=== PATIENT | female | born 1955 | race Hispanic/Latino ===

== ENCOUNTER 2020-04-05 23:24 | Emergency (ER) | payer OTHER ==
[~2020-04-05] VITALS: Ht 170.2 cm; Wt 152.0 kg
[2020-04-06 00:15] LABS: BASOPHILS % 0.5 % (0.0-1.0); EOSINOPHILS # (AUTO) 0.2 (0.0-0.4); EOSINOPHILS % 2.9 % (0.0-6.0); HEMATOCRIT 33.2 % (34.2-44.1); HEMOGLOBIN 10.3 g/dL (12.0-16.0); LYMPHOCYTES # (AUTO) 1.1 (1.0-3.2); LYMPHOCYTES % 17.8 % (18.0-39.1); MEAN CORPUSCULAR HEMOGLOBIN 26.3 pg (28-32); MEAN CORPUSCULAR VOLUME 84.9 fL (81-99); MONOCYTES # (AUTO) 0.5 (0.2-0.8); MONOCYTES % 7.6 % (4.4-11.3); NEUTROPHILS # (AUTO) 4.4 (2.1-6.9); NEUTROPHILS % 70.9 % (38.7-80.0); PLATELET COUNT 261 x10e3/uL (140-360); RED BLOOD COUNT 3.91 x10e6/uL (3.6-5.1); RED CELL DISTRIBUTION WIDTH 15.9 % (11.7-14.4)
--- OUTSIDE RECORDS SUMMARY | 2020-04-06 00:32 | XMS REPORT | Clinical Summary ---
Author Author [facility] Organization [facility] Address Unknown Phone Unavailable Care Team Providers Care Manager Drug Name Role Phone Margaret Barton MD PCP Allergies Comments Active Allergy Reactions Severity Noted Date Hallucinations reported per patient Clonidine Other (See 03/31/2020 Comments) Medications End Date Status Medication Sig Dispensed Refills Start Date Active carvediloL (COREG) 25 MG Take 25 mg by 0 tablet mouth 2 (two) times a day with meals. Active furosemide (LASIX) 40 mg Take 40 mg by 0 tablet mouth 2 (two) times a day. Active calcitrioL (ROCALTROL) Take 0.25 mcg 0 0.25 MCG capsule by mouth 3 (three) times a week. Saturday, Saturday, Saturday Active ergocalciferol (VITAMIN Take 50,000 0 D2) 50,000 unit capsule Units by mouth once a week. Saturday Active levothyroxine (SYNTHROID) Take 75 mcg 0 75 mcg tablet by mouth every morning. Active atorvastatin (LIPITOR) 40 Take 40 mg by 0 mg tablet mouth nightly. 05/01/2020 Active hydrALAZINE (APRESOLINE) Take 1 tablet 90 tablet 0 100 MG tablet (100 mg 0 total) by mouth every 8 (eight) hours for 30 days. 05/02/2020 Active NIFEdipine XL (PROCARDIA Take 1 tablet 30 tablet 0 XL) 60 MG 24 hr tablet (60 mg total) 0 by mouth daily for 30 days. 04/02/2020 Discontinued (Stop Taking at Discharge) LANTUS SOLOSTAR 100 Inject 38 0 unit/mL injection (pen) Units under 8 the skin nightly. 03/25/2020 Discontinued (Med List Clean up) lovastatin (MEVACOR) 10 Take 1 tablet 5 201 MG tablet by mouth 8 daily. 04/02/2020 Discontinued (Stop Taking at Discharge) irbesartan (AVAPRO) 300 Take 300 mg 0 MG tablet by mouth daily. 04/01/2020 Discontinued (Stop Taking at Discharge) clonIDINE (CATAPRES) 0.1 Take 1 tablet 60 tablet 0 MG tablet (0.1 mg 0 total) by mouth 2 (two) times a day for 30 days. 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 03/25/2020 [facility] Internal Tn dicine - Encounter 04/02/2020 Porter Ruiz PA 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 (HCC) (Primary Dx); S/P transmetatarsal amputation of foot, right (HCC); Right ankle swelling 01/21/2020 Orders Only Orthopedic Surgery Porter Ruiz PA 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 (HCC) (Primary Dx); Chronic multifocal osteomyelitis of left foot (HCC) 01/19/2020 Orders Only Orthopedic Surgery Porter Ruiz PA 12/28/2019 Orders Only Orthopedic Surgery Porter Ruiz PA 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 (HCC) (Primary Dx); S/P transmetatarsal amputation of foot, right (HCC) 11/26/2019 Orders Only Orthopedic Surgery Angel Santizo MD 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 (HCC) (Primary Dx) 07/27/2019 Office Visit Orthopedic Surgery after 04/06/2019 Family History Medical History Relation Name Comments Heart disease Father Shine Diabetes Sister Anna Relation Name Status Comments Father Shine Sister Anna Social History Date Tobacco Use Types Packs/Day Years Used Never Smoker Smokeless Tobacco: Never Used Drinks/Week oz/Week Comments Alcohol Use No Sex Assigned at Date Recorded Not on file Industry Job Start Date Occupation Not on file Not on file Not on file Travel End Travel History Travel Start No recent travel history available. Last Filed Vital Signs Reading Time Taken Comments Vital Sign 154/65 04/02/2020 11:52 AM CDT Blood Pressure 66 04/02/2020 11:52 AM CDT Pulse 36.5 C (97.7 F) 04/02/2020 11:52 AM CDT Temperature 21 04/02/2020 11:52 AM CDT Respiratory Rate 91% 04/02/2020 11:52 AM CDT Oxygen Saturation - - Inhaled Oxygen Concentration 155 kg (341 lb 11.2 oz) 03/29/2020 2:01 PM CDT Weight - - Height 53.52 10/31/2017 11:23 AM CDT Body Mass Index Plan of Treatment Health Maintenance Due Date Last Done Comments DIABETIC RETINAL EYE EXAM 1957 DIABETIC FOOT EXAM 1967 URINE MICROALBUMIN 1967 CERVICAL CANCER SCREENING 1978 BREAST CANCER SCREENING 2007 COLONOSCOPY SCREENING 2007 SHINGLES VACCINES (#1) 2007 INFLUENZA VACCINE 03/22/2020 Implants Device Identifier Shelf Expiration Date Model / Serial / L ot Implanted Type Area Manufactur er [id number] / / Drain Wnd Chnl 15fr 16in Rnd Hbls Surgical N/A: N/A BARD Fl-Flut W/ 10/04in Trocar - Implants; MEDICAL [id number] Expanders; DIVISION Implanted: Qty: 1 on 10/08/2017 by [employer]; Angel Santioz MD at [facility] Surgical HOSPITAL Wires [id number] / / Evacuator Bulb Jody 100cc Ltxf - Surgical N/A: N/A BARD [id number] Implants; MEDICAL Implanted: Qty: 1 on 10/08/2017 by [employer]; Angel Adler MD at [facility] Extenders; [facility] Surgical Wires Procedures Comments Procedure Name Priority Date/Time Associated Diag nosis POC GLUCOSE Routine 04/02/2020 11:52 AM CDT ESTIMATED GFR STAT 04/02/2020 8:47 AM CDT BASIC METABOLIC PANEL STAT 04/02/2020 8:47 AM CDT POC GLUCOSE Routine 04/02/2020 8:02 AM CDT POC GLUCOSE Routine 04/01/2020 9:17 PM CDT POC GLUCOSE Routine 04/01/2020 4:56 PM CDT POC GLUCOSE Routine 04/01/2020 12:27 PM CDT ESTIMATED GFR STAT 04/01/2020 11:25 AM CDT BASIC METABOLIC PANEL STAT 04/01/2020 11:25 AM CDT POC GLUCOSE Routine 04/01/2020 8:21 AM CDT POC GLUCOSE Routine 03/31/2020 8:34 PM CDT POC GLUCOSE Routine 03/31/2020 4:18 PM CDT POC GLUCOSE Routine 03/31/2020 11:26 AM CDT POC GLUCOSE Routine 03/31/2020 7:29 AM CDT ESTIMATED GFR Routine 03/31/2020 4:00 AM CDT BASIC METABOLIC PANEL Routine 03/31/2020 4:00 AM CDT MAGNESIUM LEVEL Routine 03/31/2020 4:00 AM CDT XR CHEST 1 VW PORTABLE STAT 03/31/2020 1:18 AM CDT POC GLUCOSE Routine 03/30/2020 9:31 PM CDT POC GLUCOSE Routine 03/30/2020 5:46 PM CDT POC GLUCOSE Routine 03/30/2020 12:32 PM CDT ESTIMATED GFR STAT 03/30/2020 10:42 AM CDT MAGNESIUM LEVEL STAT 03/30/2020 10:42 AM CDT BASIC METABOLIC PANEL STAT 03/30/2020 10:42 AM CDT POC GLUCOSE Routine 03/30/2020 9:17 AM CDT POC GLUCOSE Routine 03/30/2020 3:20 AM CDT POC GLUCOSE Routine 03/29/2020 4:47 PM CDT POC GLUCOSE Routine 03/29/2020 11:24 AM CDT CO2 LEVEL Routine 03/29/2020 10:09 AM CDT AST (SGOT) Routine 03/29/2020 10:09 AM CDT POTASSIUM LEVEL Routine 03/29/2020 10:09 AM CDT ALT (SGPT) Routine 03/29/2020 10:09 AM CDT TTE COMPLETE, W CONTRAST, Routine 03/29/2020 W DOPPLER ([id number]) 10:00 AM CDT POC GLUCOSE Routine 03/29/2020 7:50 AM CDT ESTIMATED GFR Routine 03/29/2020 5:45 AM CDT MAGNESIUM LEVEL Routine 03/29/2020 5:45 AM CDT COMPREHENSIVE METABOLIC Routine 03/29/2020 PANEL 5:45 AM CDT PHOSPHORUS LEVEL Routine 03/29/2020 5:45 AM CDT POC GLUCOSE Routine 03/28/2020 9:13 PM CDT POC GLUCOSE Routine 03/28/2020 5:16 PM CDT POC GLUCOSE Routine 03/28/2020 11:58 AM CDT POC GLUCOSE Routine 03/28/2020 8:22 AM CDT POC GLUCOSE Routine 03/27/2020 9:10 PM CDT PROTEIN, URINE, RANDOM Routine 03/27/2020 7:35 PM CDT CREATININE LEVEL, URINE, Routine 03/27/2020 RANDOM 7:35 PM CDT POC GLUCOSE Routine 03/27/2020 5:08 PM CDT B NATRIURETIC PEPTIDE Routine 03/27/2020 4:48 PM CDT POC GLUCOSE Routine 03/27/2020 1:07 PM CDT US RENAL Routine 03/27/2020 11:36 AM CDT POC GLUCOSE Routine 03/27/2020 7:50 AM CDT PHOSPHORUS LEVEL Routine 03/27/2020 5:06 AM CDT ESTIMATED GFR Routine 03/27/2020 5:06 AM CDT HC COMPLETE BLD COUNT Routine 03/27/2020 W/AUTO DIFF 5:06 AM CDT CREATINE KINASE, TOTAL Routine 03/27/2020 (CPK) 5:06 AM CDT HEMOGLOBIN A1C Routine 03/27/2020 5:06 AM CDT MAGNESIUM LEVEL Routine 03/27/2020 5:06 AM CDT BASIC METABOLIC PANEL Routine 03/27/2020 5:06 AM CDT CHLORIDE LEVEL, URINE, Routine 03/27/2020 RANDOM 12:55 AM CDT POTASSIUM, URINE, RANDOM Routine 03/27/2020 12:55 AM CDT CREATININE LEVEL, URINE, Routine 03/27/2020 RANDOM 12:55 AM CDT SODIUM LEVEL, URINE, Routine 03/27/2020 RANDOM 12:55 AM CDT URINALYSIS, AUTOMATED Routine 03/27/2020 WITH MICROSCOPY 12:55 AM CDT URINALYSIS, AUTOMATED STAT 03/27/2020 WITH MICROSCOPY 12:55 AM CDT POC GLUCOSE Routine 03/26/2020 9:32 PM CDT POC GLUCOSE Routine 03/26/2020 4:24 PM CDT POC GLUCOSE Routine 03/26/2020 11:33 AM CDT POC GLUCOSE Routine 03/26/2020 8:06 AM CDT ESTIMATED GFR Routine 03/26/2020 5:20 AM CDT VITAMIN B12 LEVEL Routine 03/26/2020 5:20 AM CDT FERRITIN LEVEL Routine 03/26/2020 5:20 AM CDT THYROID STIMULATING Routine 03/26/2020 HORMONE 5:20 AM CDT LIPID PANEL Routine 03/26/2020 5:20 AM CDT HEMOGLOBIN A1C Routine 03/26/2020 5:20 AM CDT MAGNESIUM LEVEL Routine 03/26/2020 5:20 AM CDT PHOSPHORUS LEVEL Routine 03/26/2020 5:20 AM CDT BASIC METABOLIC PANEL Routine 03/26/2020 5:20 AM CDT HC COMPLETE BLD COUNT Routine 03/26/2020 W/AUTO DIFF 5:20 AM CDT POC GLUCOSE Routine 03/25/2020 9:27 PM CDT POC GLUCOSE Routine 03/25/2020 6:15 PM CDT COVID-19 QUALITATIVE PCR STAT 03/25/2020 4:28 PM CDT ECG ED PRELIMINARY Routine 03/25/2020 INTERPRETATION 3:50 PM CDT IN CRITICAL CARE, E/M Routine 03/25/2020 30-74 MINUTES 3:50 PM CDT POC GLUCOSE Routine 03/25/2020 3:38 PM CDT XR CHEST 1 VW PORTABLE STAT 03/25/2020 3:08 PM CDT ESTIMATED GFR Routine 03/25/2020 3:05 PM CDT B NATRIURETIC PEPTIDE Routine 03/25/2020 3:05 PM CDT TROPONIN Routine 03/25/2020 3:05 PM CDT COMPREHENSIVE METABOLIC Routine 03/25/2020 PANEL 3:05 PM CDT PARTIAL THROMBOPLASTIN Routine 03/25/2020 TIME (PTT) 3:05 PM CDT PROTHROMBIN TIME WITH INR Routine 03/25/2020 3:05 PM CDT HC COMPLETE BLD COUNT Routine 03/25/2020 W/AUTO DIFF 3:05 PM CDT POC GLUCOSE Routine 03/25/2020 3:03 PM CDT ECG 12-LEAD STAT 03/25/2020 2:41 PM CDT POC GLUCOSE Routine 03/25/2020 2:34 PM CDT after 04/06/2019 Results * POC glucose (04/02/2020 11:52 AM CDT) Only the most recent of 35 results within the time period is included. POC glucose 143 (H) 65 - 99 mg/dL [place] Comment: [employer] Engineer Name: [facility] Device ID: [id number] Chartable: [facility] Notified RN Specimen Blood Performing Organization Address City/State/Zipcode Ph one Number [facility] DEPARTMENT OF [address] [place] [address] PATHOLOGY AND GENOMIC MEDICINE [place] [employer] [address] [place] [address] HOSPITAL * Estimated GFR (04/02/2020 8:47 AM CDT) Only the most recent of 8 results within the time period is included. [facility] Estimated GFR 12 (A) mL/min/1.73 m2 [place] Comment: [facility] Interpretation G1 >=90 Normal or high G2 60-89 Mildly decreased G3a 45-59 Mildly to moderately decreased G3b 30-44 Moderately to severely decreased G4 15-29 Severely decreased G5 <15 Kidney failure The eGFR was calculated using the Chronic Kidney Disease Epidemiology Collaboration (CKD-EPI) equation. Interpretation is based on recommendations of the National Kidney Foundation-Kidney Disease Outcomes Quality Initiative (NKF-KDOQI) published in 2014. Specimen Performing Organization Address City/[facility] Ph one Number [facility] [place] [address] PATHOLOGY AND GENOMIC MEDICINE [address] * Basic metabolic panel (04/02/2020 8:47 AM CDT) Only the most recent of 6 results within the time period is included. [facility] Sodium 139 135 - 148 mEq/L [facility] Potassium 3.9 3.5 - 5.0 mEq/L [facility] Chloride 105 98 - 112 mEq/L [facility] CO2 17 (L) 24 - 31 mEq/L [facility] Anion gap 17@ANIO (H) 7 - 15 mEq/L [facility] BUN 37 (H) 8 - 23 mg/dL [facility] Creatinine 3.71 (H) 0.50 - 0.90 mg/dL [facility] Glucose 138 (H) 65 - 99 mg/dL [facility] Calcium 8.3 (L) 8.8 - 10.2 mg/dL [facility] Specimen Blood Performing Organization Address City/[facility] Ph one Number [facility] DEPARTMENT OF [address] [place] [address] PATHOLOGY AND GENOMIC MEDICINE [address] * Magnesium level (03/31/2020 4:00 AM CDT) Only the most recent of 5 results within the time period is included. [facility] Magnesium 2.0 1.6 - 2.4 mg/dL [facility] Specimen Blood Performing Organization Address City/[facility] Ph one Number [facility] DEPARTMENT OF [address] [place] [address] PATHOLOGY AND GENOMIC MEDICINE [address] [address] HOSPITAL * XR Chest 1 Vw Portable (03/31/2020 1:18 AM CDT) Only the most recent of 2 results within the time period is included. Specimen Narrative Performed At EXAMINATION: XR CHEST 1 VW PORTABLE [facility] CLINICAL HISTORY: 64 years Female karol rt of breath COMPARISON: 03/25/2020 IMPRESSION: Lines/Tubes: None. Lungs/Pleura: Bilateral interstitial an d hazy airspace opacities, predominantly in the perihilar region likely represen t mild pulmonary edema. Superimposed infection cannot be excluded. Trace matthew ateral pleural effusions are suspected. No pneumothorax is seen. Heart/Mediastinum: The cardiomediastina l silhouette is enlarged, unchanged. Bones: No acute osseous abnormality. [id number] Procedure Note Hm Interface, Radiology Results Incoming - 03/31/2020 1:22 AM CDT EXAMINATION: XR CHEST 1 VW PORTABLE CLINICAL HISTORY: 64 years Female short of breath COMPARISON: 03/25/2020 IMPRESSION: Lines/Tubes: None. Lungs/Pleura: Bilateral interstitial and hazy airspace opacities, predominantly in the perihilar region likely represent mild pulmonary edema. Superimposed infection cannot be excluded. Trace bilateral pleural effusions are suspected. No pneumothorax is seen. Heart/Mediastinum: The cardiomediastinal silhouette is enlarged, unchanged. Bones: No acute osseous abnormality. [id number] Performing Organization Address City/State/Zipcode Ph one Number [facility] [address] [place] [id number] * ALT (SGPT) (03/29/2020 10:09 AM CDT) ALT 20 5 - 50 U/L [facility] Specimen Performing Organization Address City/State/Zipcode Ph one Number [facility] DEPARTMENT OF [address] [place] [id number] PATHOLOGY AND GENOMIC MEDICINE [address] * AST (SGOT) (03/29/2020 10:09 AM CDT) AST 19 10 - 35 U/L [facility] Specimen Performing Organization Address City/[facility]/Zipcode Ph one Number [facility] DEPARTMENT OF [address] [place] [id number] PATHOLOGY AND GENOMIC MEDICINE [address] * Potassium level (03/29/2020 10:09 AM CDT) Potassium 3.7 3.5 - 5.0 mEq/L [facility] Specimen Performing Organization Address [facility] Ph one Number [facility] DEPARTMENT OF [address] [place] [address] PATHOLOGY AND GENOMIC MEDICINE [address] * CO2 level (03/29/2020 10:09 AM CDT) CO2 16 (L) 24 - 31 mEq/L [facility] Specimen Performing Organization Address [facility] Ph one Number [facility] DEPARTMENT OF [address] [place] [address] PATHOLOGY AND GENOMIC MEDICINE [address] * Transthoracic Echocardiogram Complete, (w Contrast, Strain and 3D if needed) (03/29/2020 10:00 AM CDT) Specimen Narrative Performed At [facility] Echo cardiography Report [address] [place] [address] Pat.Name: AGATA MEDINA Pat.ID: [id number] .Date: 03/29/2020 Refer.MD: MEGHA DUONG MD Exam Time: 9:15:00 AM Study Type:Routine Echo Height: 67in Weight: 341lb BSA: 2.54 m2 Age: 9 1955,64Y Sex: FEMALE BP: 191/65 HR: 75 bpm Sonogrphr: Teresita Rapp RDCS Pat. Stat.:Inpatient Room: [facility] Study Status:Final Echo Event ID:[id number] Order ID: [id number] Reason for Study:Volume overload History / Clinical:Diabetes, Hypertensi on, Obesity Procedures: 2D Echo, Colorflow Doppler, Portable, Intravenous Definity Contrast Race: C SUMMARY: LV EF is normal. Estimated EF is 65-69% RV systolic function is normal. Diastolic dysfunction Grade II (Moderat e): Impaired relaxation with elevated LV filling pressures. Mild tricuspid regurgitation. Suboptima l/insufficient TR jet. Estimated PA systolic pressure is at le ast 59 mmHg, assuming a mean RAP of 15 mmHg. FINDINGS: LV: LV size is normal. There i s moderate concentric LV hypertrophy. LV EF is nor mal. Overall wall motion is normal. Estimated EF is 65-69% RV: RV size is normal. RV syst olic function is normal. LA: LA volume is enlarged. RA: RA size is normal. AO: Aortic root diameter is no rmal. MARK: No pericardial effusion. AV: No structural AV abnormali ties noted. MV: Mild mitral annular calcif ication. Thickened and/or calcified chordae. Mild m itral regurgitation. PV: No structural PV abnormali ties noted. A trace of pulmonic regurgitation. TV: No structural TV abnormali ties noted. Mild tricuspid regurgitation Doyle: Diastolic dysfunction Grade II (Moderate): Impaired relaxation with elevated LV filling pressures. Other: Suboptimal/insufficient TR jet. Estimated PA systolic pressure is at least 59 m mHg, assuming a mean RAP of 15 mmHg. MEASUREMENTS: 2D Parasternal [place] Ao An 2.2 cm LVPWd 1.4 cm Ao Rtd 3.1 cm Index 1.2 cm/m2 LA Ds 5.3 cm IVSd 1.2 cm RWT 0.53 LVIDd 5.3 cm Index 2.1 cm/m2 LV Mass 290 g (87-12 9)* LVIDs 3.5 cm LVM Index 114 g/m LV%fs 34 % LVOT 2.3 cm LA Sng Plane LA Area 25 cm (8.8-2 3.4)* LA Vol 86 ml Index 34 ml/m2 LA LngAx 6.1 cm LVOT LVOT Area 4.3 cm DOPPLER LVOT Stroke Vol & Cardiac Out LVOT TVI 29 cm HR 71 bpm LVOT LVOT SV 124 ml LVOT CO 8.8 l/min SVi 49 ml/m LVOT CI 3.5 l/m/m Signed 03/30/2020 11:12 AM Raine Avalos MD Procedure Note Interface, Radiology Results In - 03/30/2020 11:12 AM CDT Echocardiography Report [address] [place] [address] Pat.Name: AGATA MEDINA Pat.ID: [id number] .Date: 03/29/2020 Refer.MD: MEGHA DUONG MD Exam Time: 9:15:00 AM Study Type:Routine Echo Height: 67in Weight: 341lb BSA: 2.54 m2 Age: 9 1955,64Y Sex: FEMALE BP: 191/65 HR: 75 bpm Sonogrphr: Teresita Rapp RDCS Pat. Stat.:Inpatient Room: [facility] Study Status:Final Echo Event ID:[id number] Order ID: [id number] Reason for Study:Volume overload History / Clinical:Diabetes, Hypertension, Obesity Procedures: 2D Echo, Colorflow Doppler, Portable, Intravenous Definity Contrast Race: C SUMMARY: LV EF is normal. Estimated EF is 65-69% RV systolic function is normal. Diastolic dysfunction Grade II (Moderate): Impaired relaxation with elevated LV filling pressures. Mild tricuspid regurgitation. Suboptimal/insufficient TR jet. Estimated PA systolic pressure is at least 59 mmHg, assuming a mean RAP of 15 mmHg. FINDINGS: LV: LV size is normal. There is moderate concentric LV hypertrophy. LV EF is normal. Overall wall motion is normal. Estimated EF is 65-69% RV: RV size is normal. RV systolic function is normal. LA: LA volume is enlarged. RA: RA size is normal. AO: Aortic root diameter is normal. MARK: No pericardial effusion. AV: No structural AV abnormalities noted. MV: Mild mitral annular calcification. Thickened and/or calcified chordae. Mild mitral regurgitation. PV: No structural PV abnormalities noted. A trace of pulmonic regurgitation. TV: No structural TV abnormalities noted. Mild tricuspid regurgitation Doyle: Diastolic dysfunction Grade II (Moderate): Impaired relaxation with elevated LV filling pressures. Other: Suboptimal/insufficient TR jet. Estimated PA systolic pressure is at least 59 mmHg, assuming a mean RAP of 15 mmHg. MEASUREMENTS: 2D Parasternal [place] Ao An 2.2 cm LVPWd 1.4 cm Ao Rtd 3.1 cm Index 1.2 cm/m2 LA Ds 5.3 cm IVSd 1.2 cm RWT 0.53 LVIDd 5.3 cm Index 2.1 cm/m2 LV Mass 290 g (87-129)* LVIDs 3.5 cm LVM Index 114 g/m LV%fs 34 % LVOT 2.3 cm LA Sng Plane LA Area 25 cm (8.8-23.4)* LA Vol 86 ml Index 34 ml/m2 LA LngAx 6.1 cm LVOT LVOT Area 4.3 cm DOPPLER LVOT Stroke Vol & Cardiac Out LVOT TVI 29 cm HR 71 bpm LVOT LVOT SV 124 ml LVOT CO 8.8 l/min SVi 49 ml/m LVOT CI 3.5 l/m/m Signed 03/30/2020 11:12 AM Raine Avalos MD Performing Organization Address City[facility]State[facility] Ph one Number [facility] [address] [place] [address] * Phosphorus level (03/29/2020 5:45 AM CDT) Only the most recent of 3 results within the time period is included. Phosphorus 4.2 2.4 - 4.5 mg/dL [facility] Specimen Blood Performing Organization Address City/State/Zipcode Ph one Number [facility] DEPARTMENT OF [address] [place] [address] PATHOLOGY AND GEN[address]IC MEDICINE [facility] [address] [place] [address] HOSPITAL * Comprehensive metabolic panel (03/29/2020 5:45 AM CDT) Only the most recent of 2 results within the time period is included. Pathologist [facility] Sodium 139 135 - 148 mEq/L [facility] Potassium SEE COMMENT 3.5 - 5.0 mEq/L [place] Comment: [facility] Footnote--------- HOSPITAL Unable to perform testing, specimen is HEMOLYZED. Recollect requested for K, ALT, AST. Chloride 111 98 - 112 mEq/L [facility] CO2 10 (LL) 24 - 31 mEq/L [facility] Anion gap 18@ANIO (H) 7 - 15 mEq/L [facility] BUN 32 (H) 8 - 23 mg/dL [facility] Creatinine 2.81 (H) 0.50 - 0.90 mg/dL [facility] Glucose 111 (H) 65 - 99 mg/dL [facility] Calcium 8.4 (L) 8.8 - 10.2 mg/dL [facility] Protein 5.7 (L) 6.3 - 8.3 g/dL [place] Comment: [facility] 4.6-7.0 g/dL 1 week 4.4-7.6 g/dL 7 months-1year 5.1-7.3 g/dL 1-2 years 5.6-7.5 g/dL >3 years 6.0-8.0 g/dL 18-150 6.3-8.3 g/dL Albumin 1.7 (L) 3.5 - 5.0 g/dL [facility] A/G ratio 0.4 (L) 0.7 - 3.8 [facility] Alkaline 102 35 - 104 U/L [place] phosphatase [facility] AST SEE COMMENTComment: 10 - 35 U/L [place] Footnote--------- [facility] ALT SEE COMMENTComment: 5 - 50 U/L [place] Footnote--------- [facility] Total bilirubin 0.3 0.0 - 1.2 mg/dL [facility] Specimen Blood Narrative Performed At Unable to perform testing, specimen is HEMOLYZED. R ecollect requested for K, [facility] DEPARTMENT OF ALT, AST. ____ (name/location) notified by MRE at 0 03/29/2020 ____ PATHOLOGY AND (date/time). GENOMIC MEDICINE Performing Organization Address [facility] one Number [facility] DEPARTMENT OF [address] [place] [address] PATHOLOGY AND [facility] MEDICINE [address] * Protein, urine, random (03/27/2020 7:35 PM CDT) Protein, urine 869 mg/dL [facility] Specimen Urine Performing Organization Address [facility] one Number [facility] DEPARTMENT OF [address] [place] [address] PATHOLOGY AND GENOMIC MEDICINE [address] * Creatinine level, urine, random (03/27/2020 7:35 PM CDT) Only the most recent of 2 results within the time period is included. Creatinine, 72 mg/dL [place] urine, random [facility] Specimen Urine Performing Organization Address [facility] one Number [facility] DEPARTMENT OF [address] [place] [address] PATHOLOGY AND GENOMIC MEDICINE [address] * B natriuretic peptide (03/27/2020 4:48 PM CDT) Only the most recent of 2 results within the time period is included. BNP 203 (H) 0 - 100 pg/mL [facility] HOSPITAL Specimen Blood Performing Organization Address [facility] one Number [facility] DEPARTMENT OF [address] [place] [address] PATHOLOGY AND GENOMIC MEDICINE [address] * US Renal (03/27/2020 11:36 AM CDT) Specimen Narrative Performed At EXAMINATION: US RENAL [facility] CLINICAL HISTORY: Headache position al, ACUTE KID FAILURE COMPARISON: None. TECHNIQUE: Ultrasound evaluation of t he kidneys and bladder. FINDINGS: The right kidney measures 11.1 x 5.5 x 6.5 cm. The left kidney measures 10.6 x 5.8 x 6 cm. Renal cortical echogenicity is increased. No focal abnormality, calculi, or hydro nephrosis. The bladder is not visualized and may b e collapsed. IMPRESSION: 1.Increased renal cortical echogenicity suggests changes related chronic medical renal disease. 2.Nonvisualized urinary bladder. 3.Otherwise, unremarkable renal ultraso und. [facility]-[id number] Procedure Note Hm Interface, Radiology Results - 03/27/2020 11:59 AM CDT EXAMINATION: US RENAL CLINICAL HISTORY: Headache positional, ACUTE KID FAILURE COMPARISON: None. TECHNIQUE: Ultrasound evaluation of the kidneys and bladder. FINDINGS: The right kidney measures 11.1 x 5.5 x 6.5 cm. The left kidney measures 10.6 x 5.8 x 6 cm. Renal cortical echogenicity is increased. No focal abnormality, calculi, or hydronephrosis. The bladder is not visualized and may be collapsed. IMPRESSION: 1.Increased renal cortical echogenicity suggests changes related chronic medical renal disease. 2.Nonvisualized urinary bladder. 3.Otherwise, unremarkable renal ultrasou nd. [facility]-[id number] Performing Organization Address City/State/Zipcode Ph one Number [facility] [address] [place] [address] * CBC with platelet and differential (03/27/2020 5:06 AM CDT) Only the most recent of 3 results within the time period is included. WBC 5.87 4.50 - 11.00 k/uL [facility] RBC 4.20 4.20 - 5.50 m/uL [facility] HGB 11.2 (L) 12.0 - 16.0 g/dL [facility] HCT 36.1 (L) 37.0 - 47.0 % [facility] MCV 86.0 82.0 - 100.0 fL [facility] MCH 26.7 (L) 27.0 - 34.0 pg [facility] MCHC 31.0 31.0 - 37.0 g/dL [facility] RDW - SD 49.8 37.0 - 55.0 fL [facility] MPV 11.5 8.8 - 13.2 fL [facility] Platelet count 283 150 - 400 k/uL [facility] Nucleated RBC 0.00 /100 WBC [facility] Neutrophils 57.3 39.0 - 69.0 % [facility] Lymphocytes 33.0 25.0 - 45.0 % [facility] Monocytes 6.8 0.0 - 10.0 % [facility] Eosinophils 2.2 0.0 - 5.0 % [facility] Basophils 0.5 0.0 - 1.0 % [facility] Immature 0.2Comment: "Immature 0.0 - 1.0 % [place] granulocytes granulocytes" (promyelocytes, [facility] myelocytes, metamyelocytes) [facility] Specimen Blood Performing Organization Address [facility] one Number [facility] DEPARTMENT OF [address] [place] [address] PATHOLOGY AND GENOMIC MEDICINE [address] * Hemoglobin A1c (03/27/2020 5:06 AM CDT) Only the most recent of 2 results within the time period is included. Hemoglobin A1C 5.7 (H) 4.0 - 5.6 % [place] Comment: [facility] HbA1c cutoffs for diagnosing HOSPITAL diabetes: 4.0% - 5.6% = normal 5.7% - 6.4% = increased risk for diabetes (prediabetes)9 >=6.5% = diabetes9 Goals for glycemic control (ADA 2016) < 7.0% Target for non adults with diabetes. More or less stringent targets may be appropriate for individual patients. <7.5% Target for Children and adolescents with type 1 diabetes. Specimen Blood Performing Organization Address City/[facility] one Number [facility] DEPARTMENT OF [address] [place] [address] PATHOLOGY AND GENOMIC MEDICINE [address] * Creatine kinase, total (CPK) (03/27/2020 5:06 AM CDT) Creatine kinase 553 (H) 26 - 192 U/L [facility] Specimen Blood Performing Organization Address City/[facility]/Zipcode Ph one Number [facility] DEPARTMENT OF [address] [place] [address] PATHOLOGY AND GENOMIC MEDICINE [address] * Sodium level, urine, random (03/27/2020 12:55 AM CDT) Sodium, urine, 34 mEq/L [facility] Specimen Urine Performing Organization Address City/[facility] Ph one Number [facility] DEPARTMENT OF [address] [place] [address] PATHOLOGY AND GENOMIC MEDICINE [address] * Potassium, urine, random (03/27/2020 12:55 AM CDT) Potassium, 30.3 mEq/L [place] urine, [facility] Specimen Urine Performing Organization Address City/[facility] Ph one Number [facility] DEPARTMENT OF [address] [place] [address] PATHOLOGY AND GENOMIC MEDICINE [address] * Chloride level, urine, random (03/27/2020 12:55 AM CDT) Chloride, 32 mEq/L [place] urine, [facility] Specimen Urine Performing Organization Address City/[facility] Ph one Number [facility] DEPARTMENT OF [address] [place] [address] PATHOLOGY AND GENOMIC MEDICINE [address] * Urinalysis, automated with microscopy (03/27/2020 12:55 AM CDT) Only the most recent of 2 results within the time period is included. Color, UA Yellow [facility] Appearance, UA Hazy [facility] Specific 1.015 1.001 - 1.035 [place] gravity, [facility] pH, UA 5.0 5.0 - 8.5 [facility] Protein, UA 3+ (A) Negative [facility] Glucose, UA 3+ (A) Negative [facility] Ketones, UA Negative Negative [facility] Bilirubin, UA Negative Negative [facility] Blood, UA Moderate (A) Negative [facility] Nitrite, UA Negative Negative [facility] Urobilinogen, <2.0 <2.0 [facility] Leukocyte Trace (A) Negative [place] esterase, [facility] Epithelial 2 /HPF [place] cells, [facility] WBC, UA 28 (H) 0 - 4 /HPF [facility] RBC, UA 1 0 - 5 /HPF [facility] Bacteria, UA Moderate (A) None seen [facility] Hyaline casts, 4 /LPF [facility] WBC clumps, UA Few (A) [facility] Yeast, UA Few (A) [facility] Yeast with None seen [place] [facility] Specimen Urine Performing Organization Address City/[facility] Ph one Number [facility] DEPARTMENT OF [address] [place] [address] PATHOLOGY AND GENOMIC MEDICINE [address] * Thyroid stimulating hormone (03/26/2020 5:20 AM CDT) TSH 3.32 0.27 - 4.20 uIU/mL [facility] Specimen Blood Performing Organization Address City/[facility] Ph one Number [facility] DEPARTMENT OF [address] [place] [address] PATHOLOGY AND GENOMIC MEDICINE [address] * Ferritin level (03/26/2020 5:20 AM CDT) Ferritin level 69 13 - 150 ng/mL [facility] Specimen Blood Performing Organization Address City/[facility] Ph one Number [facility] DEPARTMENT OF [address] [place] [address] PATHOLOGY AND GENOMIC MEDICINE [address] * Vitamin B12 level (03/26/2020 5:20 AM CDT) Vitamin B12 560 211 - 946 pg/mL [place] Comment: [facility] Significant overlap exists HOSPITAL between normal and deficiency states. However, most patients with deficiencies will have Serum B12 <200 pg/mL. Specimen Serum Performing Organization Address City/[facility] Ph one Number [facility] DEPARTMENT OF [address] [place] [address] PATHOLOGY AND GENOMIC MEDICINE [address] * Lipid panel (03/26/2020 5:20 AM CDT) Cholesterol 142 <200 mg/dL [facility] Triglycerides 129 <150 mg/dL [facility] HDL cholesterol 39 (L) >40 mg/dL [facility] LDL cholesterol 83Comment: Result obtained by <100 mg/dL [place] direct LDL measurement [facility] interpretation Comment: [facility] Total Cholesterol (mg/dL) [facility] <200 Desirable 200-239 Borderline-high >=240 High Triglycerides (mg/dL) <150 Normal 150-199 Borderline-high 200-499 High >=500 Very high HDL Cholesterol (mg/dL) <40 Low (male) <40 Low (female) LDL Cholesterol (mg/dL) <100 Optimal 100-129 Near or above optimal 130-159 Borderline-high 160-189 High >=190 Very high Risk Catergories that modify LDL goals. Risk Catergories LDL goal (mg/dL) CHD and CHD risk equivalent <100 (10-year risk >20%) Multiple (2+) risk factors <130 (10-year risk =<20%) 0-1 risk factors <160 (<10-year risk) Defining levels of lipids in metabolic syndrome Triglycerides >=150 mg/dL HDL Cholesterol Men <40 mg/dL Women <40 mg/dL Non-HDL cholesterol is a second target for therapy in persons with high triglycerides (>=200 mg/dL) Specimen Blood Performing Organization Address City/[facility] Ph one Number [facility] DEPARTMENT OF [address] [place] [address] PATHOLOGY AND GENOMIC MEDICINE [address] * COVID-19 qualitative PCR (03/25/2020 4:28 PM CDT) Interpretation Negative results do not TODD preclude 2019-nCoV infection [facility] and should not be used as the HOSPITAL sole basis for treatment or other patient management decisions. Negative results must be combined with clinical observations, patient history, and epidemiological information. COVID-19 Not-Detected Not-Detected [place] qualitative PCR [facility] result HOSPITAL COVID-19 See link below for PDF Lab [place] qualitative PCR ReportComment: Case Number: [facility] [id number] HOSPITAL Specimen Nasopharyngeal swab Performing Organization Address City/State/[facility] Ph one Number [facility] DEPARTMENT OF [address] [place] [address] PATHOLOGY AND GENOMIC MEDICINE [address] * ECG ED Preliminary Interpretation - Not an Order (03/25/2020 3:50 PM CDT) Narrative Performed At Bc Melendez MD 03/28/2020 9 :43 AM ECG ED Preliminary Interpretation - Not an Order Performed by: Bc Melendez MD Authorized by: Bc Melendez MD ECG reviewed by ED 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 Interpretation: Interpretation: normal Rate: ECG rate: 56 ECG rate assessment: bradycardic Rhythm: Rhythm: sinus bradycardia Ectopy: Ectopy: none QRS: QRS axis: Normal QRS intervals: Normal Conduction: Conduction: normal ST segments: ST segments: Normal T waves: T waves: normal * CRITICAL CARE (03/25/2020 3:50 PM CDT) Narrative Performed At Bc Melendez MD 03/28/2020 9 :43 AM Critical Care Performed by: Bc Melendez MD Authorized by: Bc Melendez MD Critical care provider statement: Critical care time (minutes): 35 Critical care was necessary to treat or prevent imminent or life-threatening deterioration of the f ollowing conditions: Metabolic crisis and endocrine crisis Critical care was time spent personal ly by me on the following activities: Blood draw for specimens, development of treatment plan with patient or surrogate, discussions with consultants, discussions with primary provider, evaluation of patient 's response to treatment, examination of patient, review of old c harts, re-evaluation of patient's condition, pulse oximetry, ordering and review of radiographic studies, ordering and review of laboratory studi es and ordering and performing treatments and interventions Darío 'yes' if you are taking over cri tical care for this patient from another provider.: no * Troponin (03/25/2020 3:05 PM CDT) Troponin <0.006 0.000 - 0.040 ng/mL [place] Comment: [facility] In patients suspected of HOSPITAL having a myocardial infarction, along with all other appropriate clinical measures and actions including ECG and other diagnostics as appropriate, measure Ultra TnI at 0 hrs and at 3 hrs. Myocardial infarction VERY LIKELY The 0 hr TnI level is > 0.10 ng/mL Myocardial infarction LIKELY The 0 hr TnI level is > 0.04 ng/mL and 3 hr level is increased or decreased by at least 0.020 ng/mL Myocardial infarction VERY UNLIKELY Both the 0 hr and 3 hr TnI levels <= 0.04 ng/mL(within normal limits) OR 0 hr is > 0.04 ng/mL and 3 hr is increased OR decreased by less than 0.020 ng/mL Specimen Blood Performing Organization Address [facility] one Number [facility] DEPARTMENT OF [address] [place] [address] PATHOLOGY AND [facility] MEDICINE [address] * Partial thromboplastin time, activated (03/25/2020 3:05 PM CDT) [facility] PTT 31.8 23.0 - 36.0 sec [place] Comment: [facility] PTT therapeutic range for HOSPITAL unfractionated heparin is 61.0-112.0 seconds which corresponds to Anti-Xa 0.3-0.7 U/ml. Specimen Blood Performing Organization Address [facility] one Number [facility] DEPARTMENT OF [address] [place] [address] PATHOLOGY AND [facility] MEDICINE [address] * Prothrombin time with INR (03/25/2020 3:05 PM CDT) [facility] Prothrombin 14.8 (H) 11.5 - 14.5 sec [facility] INR 1.2 [place] Comment: [facility] Normalized HOSPITAL Ratio (INR) is a therapeutic monitoring tool for patients who are stable on oral anticoagulant therapy. An INR of 2.0-3.0 is suggested for deep vein thrombosis/pulmonary embolism. Specimen Blood Performing Organization Address [facility] one Number [facility] DEPARTMENT OF [address] [place] [address] PATHOLOGY AND [facility] MEDICINE [place] [facility] [address] [place] [address] [place] [address] HOSPITAL * ECG 12 lead (03/25/2020 2:41 PM CDT) Ventricular 56 [facility] rate Atrial rate 56 [facility] IN interval 180 [facility] QRSD interval 92 [facility] QT interval 510 [facility] QTC interval 492 [facility] P axis 1 50 [facility] QRS axis 1 25 [facility] T wave axis 21 [facility] EKG impression Sinus bradycardia-Prolonged [facility] QT-Abnormal ECG-In automated comparison with ECG of 12-AUG-2017 05:17,-No significant change was found- Specimen Narrative Performed At This result has an attachment that is n ot available. 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
--- OUTSIDE RECORDS SUMMARY | 2020-04-06 00:32 | XMS REPORT | Continuity of Care Document ---
Author Author [facility] t Organization [facility] Address [address] [place] [address] Phone Unavailable Care Team Providers Care Mail Agent Name Role Phone Mick BAHENA, Margaret PCP Corky HICKEY, Marina Attphys Unavailable Nora BAHENA, Bc Attphys Faraz BAHENA, Jazmin Doyle Attphys Porter Allen Attphys Sukhdev BAHENA, Cassie Ortiz Attphys MEGHA DUONG Admphymignon Unavailable Payers Payer Name Policy Type Policy Number Effective Date Expiration Date S rohini AETANITRAAETANITRA HMO,POS,EPO, MC/[id number] xxxxxxxxxx 1996 00:00:00 Bob Escobar Problems Condition Name Condition Details Condition Category Status Onset Date Resolution Date Last Treatment Date Treating Clinician Comments Source 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 Disease Active 2017-10-24 00:00:00 Bob Escobar Osteomyelitis of left foot Osteomyelitis of left foot Disease Active 2017-10-07 00:00:[address] Sepsis Sepsis Disease Active 2017-10-05 00:00:00 Bob Escobar Joint effusion, foot, left Joint effusion, foot, left Disease Active 2017-08-12 00:00:[address] Hypoglycemia Hypoglycemia Disease Resolved 2020-03-25 00:00:00 2 00:00:00 2020-03-27 17:09:56 Bob george Allergies, Adverse Reactions, Alerts Allergy Name Allergy Type Status Severity Reaction(s) Onset Date Inacti ve Date Treating Clinician Comments Source Clonidine Propensity to adverse reactions to drug Active Other (See Comments) 2020-03-31 00:00:00 Hallucinations reported per patient Bob Escobar No Known Allergies DA Active U 2013-09-07 00:00:00 [facility] Family History Family Member Diagnosis Comments Start Date Stop Date Source Natural father Heart disease Bob Escobar Natural sister Diabetes Rojas La thodist Social History Social Habit Start Date Stop Date Quantity Comments Source Sex Assigned At Francisco Javier palacio Tenriism Alcohol intake 2020-03-25 00:00:00 2020-03-25 00:00:00 Current non-drinker of alcohol (finding) Bob Escobar Smoking Status Start Date Stop Date Source Never smoker Bob andrade Medications Ordered Medication Name Filled Medication Name Start Date Stop Da te Current Medication? Ordering Clinician Indication Dosage Frequency Signature (SIG) Comments Components Source irbesartan (AVAPRO) 300 MG tablet 2020-04-02 17:44:44 2019 00:00:00 No 300mg QD Take 300 mg by mouth daily. Bob Escobar carvediloL (COREG) 25 MG tablet 2020-04-02 17:44:41 Yes 25mg Q.5D Take 25 mg by mouth 2 (two) times a day with meals. Bob Escobar furosemide (LASIX) 40 mg tablet 2020-04-02 17:44:41 Yes 40mg Q.5D Take 40 mg by mouth 2 (two) times a day. Carol Escobar calcitrioL (ROCALTROL) 0.25 MCG capsule 2020-04-02 17:44:41 Yes .25ug Q.[id number] Take 0.25 mcg by mouth 3 (three) times a week. Saturday, Saturday, Saturday Bob Escobar ergocalciferol (VITAMIN D2) 50,000 unit capsule 2020-04-02 17:44 :41 Yes 31486O Q7D Take 50,000 Units by mouth once a week. Saturday Bob Escobar levothyroxine (SYNTHROID) 75 mcg tablet 2020-04-02 17:44:41 Yes 75ug QD Take 75 mcg by mouth every morning. Carol Escobar atorvastatin (LIPITOR) 40 mg tablet 2020-04-02 17:44:41 Yes 40mg QD Take 40 mg by mouth nightly. Bob andrade NIFEdipine XL (PROCARDIA XL) 60 MG 24 hr tablet 2020-04-02 00:00:00 2020-05-02 23:59:00 Yes 60mg QD Take 1 tablet (60 mg total) by mouth daily for 30 days. Bob Escobar hydrALAZINE (APRESOLINE) 100 MG tablet 2020-03-22 00:00:00 2020-05-01 23:59:00 Yes 100mg Q.[id number] Ta ke 1 tablet (100 mg total) by mouth every 8 (eight) hours for 30 days. Bob matos clonIDINE (CATAPRES) 0.1 MG tablet 2020-03-27 00:00:00 00:00:00 No .1mg Q.5D Take 1 tablet (0 .1 mg total) by mouth 2 (two) times a day for 30 days. Bob Escobar LANTUS SOLOSTAR 100 unit/mL injection (pen) 2017 00:00:00 2020-04-02 00:00:00 No 38U QD Inject 38 Units under the skin nightly. Bob Escobar lovastatin (MEVACOR) 10 MG tablet 2017-07-24 00:00:00 2019 00:00:00 No 1{tbl} QD Take 1 tablet by mouth daily. Bob Escobar Vital Signs Vital Name Observation Time Observation Value Comments Source Systolic blood pressure 2020-04-02 11:52:05 154 mm[Hg] Bob Escobar Diastolic blood pressure 2020-04-02 11:52:05 65 mm[Hg] Bob Escobar Heart rate 2020-04-02 11:52:05 66 /min Bob Escobar Body temperature 2020-04-02 11:52:05 36.5 Virgen Carol Escobar Respiratory rate 2020-04-02 11:52:05 21 /min Carol Escobar Oxygen saturation in Arterial blood by Pulse oximetry 04-02 11:52:05 91 /min Bob Escobar Body weight 2020-03-29 14:01:00 154.994 kg Bob Escobar BMI 2020-03-29 14:01:00 53.52 kg/m2 Bob Escobar Procedures Procedure Date / Time Performed Performing Clinician Sourc e POC GLUCOSE 2020-04-02 11:52:00 Megha Duong Meth odist BASIC METABOLIC PANEL 2020-04-02 08:47:00 Devante Beasley ESTIMATED GFR 2020-04-02 08:47:00 Devante Beasley POC GLUCOSE 2020-04-02 08:02:00 Megha Duong Meth odist POC GLUCOSE 2020-04-01 21:17:00 Megha Duong Meth odist POC GLUCOSE 2020-04-01 16:56:00 Megha Duong Meth odist POC GLUCOSE 2020-04-01 12:27:00 Megha Duong Meth odist BASIC METABOLIC PANEL 2020-04-01 11:25:00 Megha Duong ESTIMATED GFR 2020-04-01 11:25:00 Megha Duong Meth odist POC GLUCOSE 2020-04-01 08:21:00 Megha Duong Meth odist POC GLUCOSE 2020-03-31 20:34:00 Megha Duong Meth odist POC GLUCOSE 2020-03-31 16:18:00 Megha Duong Meth odist POC GLUCOSE 2020-03-31 11:26:00 Megha Duong Meth odist POC GLUCOSE 2020-03-31 07:29:00 Megha Duong odist MAGNESIUM LEVEL 2020-03-31 04:00:00 Devante Beasley BASIC METABOLIC PANEL 2020-03-31 04:00:00 Devante Beasley ESTIMATED GFR 2020-03-31 04:00:00 Devante Beasley XR CHEST 1 VW PORTABLE 2020-03-31 01:18:36 Megha Duong Tenriism POC GLUCOSE 2020-03-30 21:31:00 Megha Duong Meth odist POC GLUCOSE 2020-03-30 17:46:00 Megha Duong Meth odist POC GLUCOSE 2020-03-30 12:32:00 Megha Duong BASIC METABOLIC PANEL 2020-03-30 10:42:00 Devante Beasley MAGNESIUM LEVEL 2020-03-30 10:42:00 Devante Beasley ESTIMATED GFR 2020-03-30 10:42:00 Devante Beasley POC GLUCOSE 2020-03-30 09:17:00 Senegalese, Megha Rojas Meth odist POC GLUCOSE 2020-03-30 03:20:00 Senegalese, Megha Rojas Meth odist POC GLUCOSE 2020-03-29 16:47:00 Senegalese, Megha Rojas Meth odist POC GLUCOSE 2020-03-29 11:24:00 Senegalese, Megha Anglin odist ALT (SGPT) 2020-03-29 10:09:00 Senegalese, Megha Anglin odist POTASSIUM LEVEL 2020-03-29 10:09:00 SenegaleseMegha odlibby AST (SGOT) 2020-03-29 10:09:00 SenegaleseMegha odist CO2 LEVEL 2020-03-29 10:09:00 Senegalese, Megha Anglin odlibby TTE COMPLETE, W CONTRAST, W DOPPLER ([id number]) 2020-03-29 10:00:00 Megha Duong POC GLUCOSE 2020-03-29 07:50:00 Megha Duong odlibby PHOSPHORUS LEVEL 2020-03-29 05:45:00 Devante Beasley COMPREHENSIVE METABOLIC PANEL 2020-03-29 05:45:00 Power Beasley MAGNESIUM LEVEL 2020-03-29 05:45:00 Devante Beasley ESTIMATED GFR 2020-03-29 05:45:00 Devante Beasley POC GLUCOSE 2020-03-28 21:13:00 Megha Duong Meth odist POC GLUCOSE 2020-03-28 17:16:00 Megha Duong Meth odist POC GLUCOSE 2020-03-28 11:58:00 Megha Duong Meth odist POC GLUCOSE 2020-03-28 08:22:00 Megha Duong Meth odist POC GLUCOSE 2020-03-27 21:10:00 Megha Duong odlibby CREATININE LEVEL, URINE, RANDOM 2020-03-27 19:35:00 Talia Cabezas PROTEIN, URINE, RANDOM 2020-03-27 19:35:00 Sofie Cabezas Tenriism POC GLUCOSE 2020-03-27 17:08:00 Megha Duong B NATRIURETIC PEPTIDE 2020-03-27 16:48:00 Sofie Cabezas Tenriism POC GLUCOSE 2020-03-27 13:07:00 Megha Duong US RENAL 2020-03-27 11:36:15 Megha Duong odlibby POC GLUCOSE 2020-03-27 07:50:00 Megha Duong BASIC METABOLIC PANEL 2020-03-27 05:06:00 Megha Duong MAGNESIUM LEVEL 2020-03-27 05:06:00 Megha Duong HEMOGLOBIN A1C 2020-03-27 05:06:00 Megha Duong CREATINE KINASE, TOTAL (CPK) 2020-03-27 05:06:00 Megha Duong HC COMPLETE BLD COUNT W/AUTO DIFF 2020-03-27 05:06:00 Luis Cabezas ESTIMATED GFR 2020-03-27 05:06:00 Megha Duong PHOSPHORUS LEVEL 2020-03-27 05:06:00 Megha Duong hodlibby URINALYSIS, AUTOMATED WITH MICROSCOPY 2020-03-27 00:55:00 Sofie Cabezas SODIUM LEVEL, URINE, RANDOM 2020-03-27 00:55:00 Sofie Cabezas CREATININE LEVEL, URINE, RANDOM 2020-03-27 00:55:00 Talia Cabezas POTASSIUM, URINE, RANDOM 2020-03-27 00:55:00 Sofie Cabezas CHLORIDE LEVEL, URINE, RANDOM 2020-03-27 00:55:00 Mynor Cabezas POC GLUCOSE 2020-03-26 21:32:00 Megha Duong odist POC GLUCOSE 2020-03-26 16:24:00 Megha Duong odist POC GLUCOSE 2020-03-26 11:33:00 Senegalese, Megha AndradeNisha Rojas Meth odist POC GLUCOSE 2020-03-26 08:06:00 Senegalese, Megha Jazmin Anglin odlibby HC COMPLETE BLD COUNT W/AUTO DIFF 2020-03-26 05:20:00 Faraz Megha Escobar BASIC METABOLIC PANEL 2020-03-26 05:20:00 Senegalese, Megha Zimmer n Tenriism PHOSPHORUS LEVEL 2020-03-26 05:20:00 Senegalese, Megha Jazmin Rojas Met hodist MAGNESIUM LEVEL 2020-03-26 05:20:00 Senegalese, Megha Jazmin Anglin odist HEMOGLOBIN A1C 2020-03-26 05:20:00 Senegalese, Megha Anglin odist LIPID PANEL 2020-03-26 05:20:00 Senegalese, Megha Anglin odlibby THYROID STIMULATING HORMONE 2020-03-26 05:20:00 Senegalese, Megha Mesaist FERRITIN LEVEL 2020-03-26 05:20:00 Senegalese, Megha Anglin odist VITAMIN B12 LEVEL 2020-03-26 05:20:00 Senegalese, Megha Rojas Me thodist ESTIMATED GFR 2020-03-26 05:20:00 Senegalese, Megha Anglin odist POC GLUCOSE 2020-03-25 21:27:00 [place]egalese, Megha Jazmin Rojas Meth odist POC GLUCOSE 2020-03-25 18:15:00 Senegalese, Megha Jazmin george COVID-19 QUALITATIVE PCR 2020-03-25 16:28:00 Bc Melendez MO CRITICAL CARE, E/M 30-74 MINUTES 2020-03-25 15:50:06 Bc Melendez ECG ED PRELIMINARY INTERPRETATION 2020-03-25 15:50:06 Mignon Melendez POC GLUCOSE 2020-03-25 15:38:00 Bc Melendez XR CHEST 1 VW PORTABLE 2020-03-25 15:08:00 Bc Melendez HC COMPLETE BLD COUNT W/AUTO DIFF 2020-03-25 15:05:00 Mignon Melendez PROTHROMBIN TIME WITH INR 2020-03-25 15:05:00 Bc Melendez PARTIAL THROMBOPLASTIN TIME (PTT) 2020-03-25 15:05:00 Mignon Melendez COMPREHENSIVE METABOLIC PANEL 2020-03-25 15:05:00 NoraYu en Bob Escobar TROPONIN 2020-03-25 15:05:00 Bc Melendez Met hodist B NATRIURETIC PEPTIDE 2020-03-25 15:05:00 Bc Melendezraymond on Tenriism ESTIMATED GFR 2020-03-25 15:05:00 Nora Bc Rojas Met hodist POC GLUCOSE 2020-03-25 15:03:00 Bc Melendez Met hodist ECG 12-LEAD 2020-03-25 14:41:42 Bc Melendez Met hodist POC GLUCOSE 2020-03-25 14:34:00 Provider, Unknown [facility] Plan of Care Planned Activity Planned Date Details Comments Source Future Scheduled Test 2020-03-22 00:00:00 INFLUENZA VACCINE [code = INFLUENZA VACCINE] Rojas Tenriism Future Scheduled Test 2007 00:00:00 BREAST CANCER SCRE ENING [code = BREAST CANCER SCREENING] Rojas Tenriism Future Scheduled Test 2007 00:00:00 COLONOSCOPY SCREEN ING [code = COLONOSCOPY SCREENING] [facility] Future Scheduled Test 2007 00:00:00 SHINGLES VACCINES (#1) [code = SHINGLES VACCINES (#1)] [facility] Future Scheduled Test 1978 00:00:00 Screening for dl gnant neoplasm of cervix (procedure) [code = 890375674] Rojas Celia Future Scheduled Test 1967 00:00:00 DIABETIC FOOT EXAM [code = DIABETIC FOOT EXAM] Rojas Tenriism Future Scheduled Test 1967 00:00:00 URINE MICROALBUMIN [code = URINE MICROALBUMIN] [facility] Future Scheduled Test 1957 00:00:00 DIABETIC RETINAL E YE EXAM [code = DIABETIC RETINAL EYE EXAM] Bob Escobar Encounters Start Date/Time End Date/Time Encounter Type Admission Type Att[facility] Facility Care Department Encounter ID Source 2020-03-25 00:00:00 2020-04-02 00:00:00 Inpatient MEGHA DUONG [facility] [id number] Bob Escobar Results Test Description Test Time Test Comments Results Result Comments Source POC glucose 2020-04-02 11:54:57 Test Item POC glucose (test code = 10699-4) 143 mg/dL 65-99 H Roll Slicing Machine Tender Name: Deandre العليalysDevice ID: [id number]: [facility] Notified news clipping cutter Interpretation (test code = 67546-9) Abnormal [facility] [id number] 11:37:12* Test Item Value Reference Range Interpretation Comments Sodium (test code = 2951-2) 139 135- 148 mEq/L Potassium (test code = 2823-3) 3.9 3.5- 5.0 mEq/L Chloride (test code = 2075-0) 105 98- 112 mEq/L CO2 (test code = 2027-9) 17 24- 31 mEq/L L Anion gap (test code = 81191-5) 17@ANIO 7- 15 mEq/L H BUN (test code = 3094-0) 37 mg/dL 8-23 H Creatinine (test code = 2160-0) 3.71 mg/dL 0.5-0.9 H Glucose (test code = 2345-7) 138 mg/dL 65-99 H Calcium (test code = 32536-5) 8.3 mg/dL 8.8-10.2 L Lab Interpretation (test code = 40865-8) Abnormal [place] MethodistEstimated [id number] 11:37:12* Test Item Value Reference Range Interpretation Comments Estimated GFR (test code = 5488) 12 mL/min/1.73 m2 A Catergory Units InterpretationG1 >=90 Normal or highG2 60-89 Mildly ydgwqazbhL6v 45-59 Mildly to moderately mvsdvcvleW9e 30-44 Moderately to severely decreasedG4 15-29 Severely decreasedG5 <15 Kidney failureThe eGFR was calculated using the Chronic Kidney Disease Epidemiology Collaboration (CKD-EPI) equation. Interpretation is based on recommendations of the National Kidney Foundation-Kidney Disease Outcomes Quality Initiative (NKF-KDOQI) published in 2014. Lab Interpretation (test code = 72939-9) Abnormal [place] MethodistMagnesium [id number] 06:48:48* Test Item Value Reference Range Interpretation Comments Magnesium (test code = 04404-8) 2.0 mg/dL 1.6-2.4 [place] MethodistXR Chest 1 Vw [id number] 01:19:37Hm Interface, Radiology Results 03/31/2020 1:22 AM CDTEXAMINATION: XR CHEST 1 VW PORTABLECLINICAL HISTORY: 64 years Female short of breathCOMPARISON: 03/25/2020IMPRESSION:Lines/Tubes: None.Lungs/Pleura: Bilateral interstitial and hazy airspace opacities, predominantly in the perihilar region likely represent mild pulmonary edema. Superimposed infection cannot be excluded. Trace bilateral pleural effusions are suspected. No pneumothorax is seen.Heart/Mediastinum: The cardiomediastinal silhouette is enlarged, unchanged.Bones: No acute osseous abnormality. [id number] MethodistTransthoracic Echocardiogram Complete, (w Contrast, Strain and 3D if needed)2020-03-30 11:12:00Interface, Radiology Results In - 03/30/2020 11:12 AM CDT Echocardiography Report [id number]Name: [facility].ID: [id number] .Date: 03/29/2020 Refer.MD: MEGHA DUONG MD Exam Time: 9:15:00 AM Study Type:Routine Echo Height: 67in Weight: 341lb BSA: 2.54 m2 Age: 9 1955,64Y Sex: FEMALE BP: 191/65 HR: 75 bpm Sonogrphr: Teresita Rapp RDCS Pat. Stat.:[place] [facility] [place] S [place]atus:Final Echo Event ID:[id number] Order ID: [id number] Reason for Study:Volume overload History / Clinical:Diabetes , Hypertension, ObesityProcedures: 2D Echo, Colorflow Doppler, Portable, Intrave nous DefinityContrastRace: C SUMMARY: LV EF is normal. Estimat ed EF is 65-69%RV systolic function is normal.Diastolic dysfunction Grade II (Mo derate): Impaired relaxation withelevated LV filling pressures.Mild tricuspid re gurgitation. Suboptimal/insufficient TR jet.Estimated PA systolic pressure is at least 59 mmHg, assuming a meanRAP of 15 mmHg. --FINDINGS: LV: LV size is normal. Ther e is moderate concentric LV hypertrophy. LV EF is normal. Overall wall motion is normal. Estimated EF is 65-69%RV: RV size is normal. RV systolic function is normal.LA: LA volume is enlarged.RA: RA size is normal.AO: Aortic root diameter is normal.MARK: No pericardial effus ion.AV: No structural AV abnormalities noted.MV: Mild mitral annular calcification. Thickened and/or calcified chordae. Mild mitral regurgi tation.PV: No structural PV abnormalities noted. A trace of pulmonic regurgitation. TV: No structural TV abnormalities noted. Mild tricuspid regurgitation Doyle: Diastolic dysfunction Grade II (Moderate): Im paired relaxation with elevated LV filling pressures.Other: Suboptim al/insufficient TR jet. Estimated PA systolic pressure is at least 59 m mHg, assuming a mean RAP of 15 mmHg. --MEASUREMENTS: 2DParasternal Long [place] Ao An 2.2 cm LVPWd 1.4 cm Ao Rtd 3.1 cm Index 1.2 cm/m2 LA Ds 5.3 cm IVSd 1.2 cm RWT 0.5 3 LVIDd 5.3 cm Index 2.1 cm/m2 LV Mass 290 g (87-129)* LVIDs 3.5 cm LVM Index 114 g/m2 LV%fs 34 % LVOT 2.3 cm LA Sng Plane LA Area 25 cm2 (8.8-23.4)* LA Vol 86 ml Index 34 ml/m2 LA LngAx 6.1 cm LVOT LVOT Area 4.3 cm2 DOPPLERLVOT Stroke Vol & Cardiac Out LVOT TVI 29 cm HR 71 bpm LVOT LVOT SV 124 ml LVOT CO 8.8 l/min SVi 49 ml/m2 LVOT CI 3.5 l/m/m2 Signed 03/30/2020 11:12 Cheri Avalos MD [place] MethodistCO2 [id number] 10:49:33* Test Item Value Reference Range Interpretation Comments CO2 (test code = 2028-03) 16 24- 31 mEq/L L Lab Interpretation (test code = 46940-4) Abnormal Ro[facility] MethodistPotassium [id number] 10:49:33* Test Item Value Reference Range Interpretation Comments Potassium (test code = 2823-3) 3.7 3.5- 5.0 mEq/L [place] MethodistAST (SGOT)2020-03-29 10:49:33* Test Item Value Reference Range Interpretation Comments AST (test code = 1920-8) 19 U/L 10-35 [place] MethodistALT (SGPT)2020-03-29 10:49:33* Test Item Value Reference Range Interpretation Comments ALT (test code = 1742-6) 20 U/L 5-50 [place] MethodistComprehensive metabolic [id number] 08:30:43* Test Item Value Reference Range Interpretation Comments Sodium (test code = 2951-2) 139 135- 148 mEq/L Potassium (test code = 2823-3) SEE COMMENT 3.5- 5.0 mEq/L Footnote---------Unable to perform testing, specimen is HEMOLYZED. Recollect requested for K, ALT, AST. Chloride (test code = 2075-0) 111 98- 112 mEq/L CO2 (test code = 2028-03) 10 24- 31 mEq/L LL Anion gap (test code = 84703-7) 18@ANIO 7- 15 mEq/L H BUN (test code = 3094-0) 32 mg/dL 8-23 H Creatinine (test code = 2160-0) 2.81 mg/dL 0.5-0.9 H Glucose (test code = 2345-7) 111 mg/dL 65-99 H Calcium (test code = 55900-9) 8.4 mg/dL 8.8-10.2 L Protein (test code = 2885-2) 5.7 g/dL 6.3-8.3 L -[place] 4.6- 7.0 g/dL1 week 4.4-7.6 g/dL7 months-1year 5.1-7.3 g/dL1-2 years 5.6-7.5 g/dL>3 years 6.0-8.0 g/jJ60-334 6.3-8.3 g/dL Albumin (test code = 1751-7) 1.7 g/dL 3.5-5 L A/G ratio (test code = 1759-0) 0.4 0.7-3.8 L Alkaline phosphatase (test code = 6768-6) 102 U/L 35-104 AST (test code = 1920-8) SEE COMMENT 10-35 Stella tnote--------- ALT (test code = 1742-6) SEE COMMENT 5-50 Stella tnote--------- Total bilirubin (test code = 1975-2) 0.3 mg/dL 0-1.2 STEVE (test code = STEVE) Unable to perform testing, mignon negro is HEMOLYZED. Recollect requested for K, ALT, AST. ____ (name/location) notified by MRE at 03/29/2020 ____ (date/time). Lab Interpretation (test code = 93249-3) Abnormal [place] MethodistPhosphorus [id number] 08:26:42* Test Item Value Reference Range Interpretation Comments Phosphorus (test code = 2777-1) 4.2 mg/dL 2.4-4.5 Rojas MethodistProtein, urine, ppmtqm6430-92-46 21:57:05* Test Item Value Reference Range Interpretation Comments Protein, urine random (test code = 2888-6) 869 mg/dL [place] MethodistCreatinine level, urine, yzkcyq2108-29-51 21:03:01* Test Item Value Reference Range Interpretation Comments Creatinine, urine, random (test code = 37044-1) 72 mg/dL Rojas MethodistB natriuretic [id number] 17:58:53* Test Item Value Reference Range Interpretation Comments BNP (test code = 14225-9) 203 pg/mL 0-100 H Lab Interpretation (test code = 31052-1) Abnormal Ro[facility] MethodistUS [id number] 11:55:58Hm Interface, Radiology Results Incoming - 03/27/2020 11:59 AM CDTEXAMINATION: US RENALCLINICAL HISTORY: Headache positional, ACUTE KID FAILURE COMPARISON: None.TECHNIQUE: Ultrasound evaluation of the kidneys and bladder.FINDINGS:The right kidney measures 11.1 x 5.5 x 6.5 cm. The left kidney measures 10.6 x 5.8 x 6 cm. Renal cortical echogenicity is increased.No focal abnormality, calculi, or hydronephrosis.The bladder is not visualized and may be collapsed.IMPRESSION:1.Increased renal cortical echogenicity suggests changes related chronic medical renal disease.2.Nonvisualized urinary bladder.3.Otherwise, unremarkable renal ul trasound.[facility]-[id number] MethodistHemoglobin [id number] 08:13:36* Test Item Value Reference Range Interpretation Comments Hemoglobin A1C (test code = 31974-9) 5.7 % 4-5.6 H HbA1c cutoffs for diagnosing diabetes:4.0% - 5.6% = normal5.7% - 6.4% = increased risk for diabetes (prediabetes)9>=6.5% = uyxqttls8Qlcej for glycemic control (ADA 2016)< 7.0% Target for non adults with diabetes. More or less stringent targets may be appropriate for individual patients. <7.5% Target for Children and adolescents with type 1 diabetes. Lab Interpretation (test code = 64344-4) Abnormal [place] MethodistCBC with platelet and ugvouxvihdmf1812-04-91 07:55:28* Test Item Value Reference Range Interpretation Comments WBC (test code = 20086-5) 5.87 4.50- 11.00 k/uL RBC (test code = 32423-7) 4.20 m/uL 4.2-5.5 HGB (test code = 718-7) 11.2 g/dL 12-16 L HCT (test code = 4544-3) 36.1 % 37-47 L MCV (test code = 787-2) 86.0 fL 82-100 MCH (test code = 785-6) 26.7 pg 27-34 L MCHC (test code = 786-4) 31.0 g/dL 31-37 RDW - SD (test code = 18500-4) 49.8 fL 37-55 MPV (test code = 55603-4) 11.5 fL 8.8-13.2 Platelet count (test code = 47540-7) 283 150- 400 k/uL Nucleated RBC (test code = 22725-9) 0.00 /100 WBC Neutrophils (test code = 95741-0) 57.3 % 39-69 Lymphocytes (test code = 77413-1) 33.0 % 25-45 Monocytes (test code = 49157-7) 6.8 % 0-10 Eosinophils (test code = 40027-7) 2.2 % 0-5 Basophils (test code = 57219-7) 0.5 % 0-1 Immature granulocytes (test code = 52024-3) 0.2 % 0-1 "Immature granulocytes" (promyelocytes, myelocytes, metamyelocytes) Lab Interpretation (test code = 79611-1) Abnormal [place] MethodistCreatine kinase, total (CPK)2020-03-27 07:06:33* Test Item Value Reference Range Interpretation Comments Creatine kinase (test code = 2157-6) 553 U/L 26-192 H Lab Interpretation (test code = 02975-8) Abnormal [place] MethodistUrinalysis, automated with wfzoazsjfk1678-51-44 03:11:43* Test Item Value Reference Range Interpretation Comments Color, UA (test code = 5778-6) Yellow Appearance, UA (test code = 5767-9) Hazy Specific gravity, UA (test code = 5811-5) 1.015 1.001-1.035 pH, UA (test code = 5803-2) 5.0 5.0-8.5 Protein, UA (test code = 05799-2) 3+ Negative A Glucose, UA (test code = 10735-3) 3+ Negative A Ketones, UA (test code = 2514-8) Negative Negative Bilirubin, UA (test code = 5770-3) Negative Negative Blood, UA (test code = 5794-3) Moderate Negative A Nitrite, UA (test code = 5802-4) Negative Negative Urobilinogen, UA (test code = 02086-9) <2.0 <2.0 Leukocyte esterase, UA (test code = 5799-2) Trace Negative A Epithelial cells, UA (test code = 5787-7) 2 /HPF WBC, UA (test code = 5821-4) 28 0- 4 /HPF H RBC, UA (test code = 14692-1) 1 0- 5 /HPF Bacteria, UA (test code = 81985-7) Moderate None seen A Hyaline casts, UA (test code = 5796-8) 4 /LPF WBC clumps, UA (test code = 79948-0) Few A Yeast, UA (test code = 93520-6) Few A Yeast with pseudohyphae, UA (test code = 45665-8) None seen Lab Interpretation (test code = 61067-1) Abnormal [place] MethodistSodium level, urine, bywqjk8265-98-84 02:42:33* Test Item Value Reference Range Interpretation Comments Sodium, urine, random (test code = 89209-0) 34 mEq/L Rojas MethodistChloride level, urine, tjjqtb1017-03-88 02:42:09* Test Item Value Reference Range Interpretation Comments Chloride, urine, random (test code = 59003-5) 32 mEq/L [place] [facility]assium, urine, [id number] 02:30:23* Test Item Value Reference Range Interpretation Comments Potassium, urine, random (test code = 2828-2) 30.3 mEq/L [place] [facility]yroid stimulating [id number] 07:17:11* Test Item Value Reference Range Interpretation Comments TSH (test code = 3016-3) 3.32 0.27- 4.20 uIU/mL [facility] [id number] 07:15:57* Test Item Value Reference Range Interpretation Comments Cholesterol (test code = 2093-3) 142 mg/dL <200 Triglycerides (test code = 2571-8) 129 mg/dL <150 HDL cholesterol (test code = 2085-9) 39 mg/dL >40 L LDL cholesterol (test code = 2089-1) 83 mg/dL <100 Result obtained by direct LDL measurement Lipid panel interpretation (test code = 63681-1) SeeBelow Total Cholesterol (mg/dL) <200 Desirable 200-239 Borderline-high >=240 High Triglycerides (mg/dL) <150 Normal 150-199 Borderline-high 200-499 High >=500 Very high HDL Cholesterol (mg/dL) <40 Low (male) <40 Low (female) LDL Cholesterol (mg/dL) <100 Optimal 100-129 Near or above optimal 130-159 Borderline-high 160-189 High >=190 Very high Risk Catergories that modify LDL goals.Risk Catergories LDL goal (mg/dL)CHD and CHD risk equivalent <100 (10-year risk >20%)Multiple (2+) risk factors <130 (10-year risk =<20%)0-1 risk factors <160 (<10-year risk) Defining levels of lipids in metabolic syndromeTriglycerides >=150 mg/dLHDL Cholesterol Men <40 mg/dL Women <40 mg/dL Non-HDL cholesterol is a second target for therapy in personswith high triglycerides (>=200 mg/dL) Lab Interpretation (test code = 24087-7) Abnormal [facility]rit[facility] [id number] 07:14:22* Test Item Value Reference Range Interpretation Comments Ferritin level (test code = 2276-4) 69 ng/mL 13-150 [facility] MethodistVitamin B12 [id number] 07:04:34* Test Item Value Reference Range Interpretation Comments Vitamin B12 (test code = 2132-9) 560 pg/mL 211-946 Significant overlap exists between normal and deficiency states.However, most patients with deficiencies will have Serum B12 <200 pg/mL. Bob EscobarCOVID-19 qualitative [id number] 00:49:18* Test Item Value Reference Range Interpretation Comments Interpretation (test code = 0222867) Negative results do not preclude 2019-nCoV infection and should not be used as the sole basis for treatment or other patient management decisions. Negative results must be combined with clinical observations, patient history, and epidemiological information. COVID-19 qualitative PCR result (test code = 67461-0) Not-Detect ed Not-Detected COVID-19 qualitative PCR (test code = 7070) See link below for P DF Lab Report Bob SimonG 12 [id number] 17:44:48* Test Item Value Reference Range Interpretation Comments Ventricular rate (test code = 253) 56 Atrial rate (test code = 255) 56 MO interval (test code = 266) 180 QRSD interval (test code = 260) 92 QT interval (test code = 264) 510 QTC interval (test code = 265) 492 P axis 1 (test code = 267) 50 QRS axis 1 (test code = 268) 25 T wave axis (test code = 270) 21 EKG impression (test code = 273) Sinus bradycardia-Pro longed QT-Abnormal ECG-In automated comparison with ECG of 12-AUG-2017 05:17,-No significant change was found- [place] HqbzucilmOnrltmvv2790-43-53 16:01:22* Test Item Value Reference Range Interpretation Comments Troponin (test code = 66148-4) <0.006 0-0.04 In patients suspected of having a myocardial infarction, along with all other appropriate clinical measures and actions including ECG and other diagnostics as appropriate, measure Ultra TnI at 0 hrs and at 3 hrs.Myocardial infarction VERY LIKELYThe 0 hr TnI level is > 0.10 ng/mL Robel cardial infarction LIKELYThe 0 hr TnI level is > 0.04 ng/mL and 3 hr level is increased or decreased by at least 0.020 ng/mL Myocardi al infarction VERY UNLIKELYBoth the 0 hr and 3 hr TnI levels <= 0.04 ng/mL(within normal limits) OR 0 hr is > 0.04 ng/mL and 3 hr is increased OR decreased by less than 0.020 ng/mL [facility] [id number] 15:50:06Bc Melendez MD 03/28/2020 9:43 AMCritical CarePerformed by: Bc Melendez MDAuthorized by: Bc Melendez MD Critical care provider statement: Critical care time (minutes): 35 Critical care was necessary to treat or prevent imminent or life-threatening deterioration of the following conditions: Metabolic crisis and endocrine crisis Critical care was time spent personally by me on the following activities: Blood draw for specimens, development of treatment plan with patient or surrogate, discussions with consultants, discussions with primary provider, evaluation of patient's response to treatment, examination of patient, review of old charts, re-evaluation of patient's condition, pulse ox imetry, ordering and review of radiographic studies, ordering and review of labo ratory studies and ordering and performing treatments and interventions Darío 'y es' if you are taking over critical care for this patient from another provider. : no [facility] ED Preliminary Interpretation - Not an Order 2020-03-25 15:50:06Bc Melendez MD 03/28/2020 9:43 [facility] [place] [facility] Preliminary Interpretation - Not an OrderPerformed by: Bc Melendez MDAuthorized by: Bc Melendez MD ECG reviewed by ED Physician in the absence of a corrective and manual arts therapist: yes Interpretation: Interpretation: normal Rate: ECG rate: 56 ECG rate assessment: bradycardic Rhythm: Rhythm: sinus bradycardia Ectopy: Ectopy: none QRS: QRS axis: Normal QRS intervals: NormalConduction: Conduction: normal ST segments: ST segments: NormalT waves: T waves: normal Bob EscobarPartial thromboplastin time, [id number] 15:42:47* Test Item Value Reference Range Interpretation Comments PTT (test code = 21645-5) 31.8 23.0- 36.0 sec PTT therapeutic range for unfractionated heparin is61.0-112.0 seconds which corresponds to Anti-Xa0.3-0.7 U/ml. [facility] MethodistProthrombin time with [id number] 15:42:06* Test Item Value Reference Range Interpretation Comments Prothrombin time (test code = 5902-2) 14.8 11.5- 14.5 sec H INR (test code = 85492-1) 1.2 Th e International Normalized Ratio (INR) is a therapeutic monitoring tool for patients who are stable on oral anticoagulant therapy. An INR of 2.0-3.0 is suggested for deep vein thrombosis/pulmonary embolism. Lab Interpretation (test code = 70239-3) Abnormal Bob EscobarFfndkiudiHBUFRE1474-71-88 06:47:00* Test Item Value Reference Range Interpretation Comments GLUBED (test code = GLUBED) 129 MG/DL 70-110 H Performed by certified refinery operator helper at [facility] [id number] 06:46:00* Test Item Value Reference Range Interpretation Comments GLUBED (test code = GLUBED) 111 MG/DL 70-110 H Performed by certified refinery operator helper at [facility] [id number] 18:10:00* Test Item Value Reference Range Interpretation Comments GLUBED (test code = GLUBED) 134 MG/DL 70-110 H Performed by certified refinery operator helper at [facility] - DUP VEIN UNI/[id number] 14:04:00 Name: GRACIELA MEDINA [facility] : 1955 Age/S: 64 / F [address] [place] [address] Unit #: [id number] Loc: [place] [address] Phys: Nannette Ni MD Acct: [id number] Dis Date: Status: ADM IN PHONE #: [phone] Exam Date: 08/05/2019 1357 FAX #: [phone] Reason: RLE SWELLING EXAMS: CPT CODE: [id number] DUP VEIN UNI/LTD 69296 EXAM: US RIGHT LOWER EXTREMITY VENOUS DOPPLER DATE: 08/05/2019 10:45 AM : 1955; Age: 64 years y/o Female INDICATION: RLE SWELLING ADDITIONAL INFORMATION: None. COMPARISON: None. TECHNIQUE: Multiplanar grayscale, color Doppler and spectral Doppler ultrasound of the right lower extremity veins. FINDINGS: Right lower extremity: The common femoral vein, femoral vein, popliteal vein and visualized ankle veins are patent. There is no echogenic debris to suggest deep venous thrombosis. Right calf posterior tibial vein is not/due to edema. Right posterior knee 6.1 x 1.5 x 2.5 cm Theodore's cyst is seen. IMPRESSION: No deep venous thrombosis (DVT) visualized. Examination is limited due to patient's body habitus. Right calf posterior tibial vein is not seen due to soft tissue edema. Right posterior knee 6.1 x 1.5 x 2.5 cm Theodore's cyst is seen. SL: [id number] at 1404 Reported and signed by: Comfort Whyte D.O. CC: Nannette Ni MD Technologist: Na Potts RDMS(AB) Trnscb Date/Time: 08/05/2019 (1 404) [email or web address] Orig Print D/T: S: 08/05/2019 (4888) Enriqueta desiree: PAGE 1 Signed Report - XR CHEST 1 [id number] 12:51:00 FAX: Nannette Ni MD [phone] [place]: St: ADM Name: GRACIELA ZAMUDIO [facility] : [birth year] Age/S: 64/F [address] [place] [address] Bl Unit #: [id number] Loc: .[address] [place] [address] Phys: Nannette Ni MD Acct: [id number] Dis Date: Status: ADM IN PHONE #: [phone] Exam Date: 08/05/2019 1145 FAX #: [phone] Reason: cough, dyspnea EXAMS: CPT CODE: [id number] XR CHEST 1 V 55727 EXAM: Single view AP chest. EXAM DATE: 08/05/2019 at 1036 hours CLINICAL HISTORY: c ough, dyspnea COMPARISON: None Monitor wire s overlie the right hemithorax. The heart is enlarged. The right pravin g is difficult to evaluate secondary to overlying wires but grossly appear s within normal limits. The left lung demonstrates no evidence of acute di sease. Visualized osseous structures demonstrate degenerative changes in t he thoracic spine. IMPRESSION: Cardiomegaly. at 1251 Reported and signed by: Lyla Adamson M.D. CC: Nannette Ni MD Technologist: Deyanira Zimmerman, RT(R) Trnscrd Date/Time/By: 08/05/2019 (9613) : By: Garrick Orig Print D/T: S: 08/05/2019 (9236) PAGE 1 Signed Report BASIC METABOLIC PANEL 2019-08-05 07:38:00* Test Item Value Reference Range Interpretation Comments SODIUM (test code = NA) 143 mEq/L 134-147 N POTASSIUM (test code = K) 3.6 mEq/L 3.4-5.0 N CHLORIDE (test code = CL) 117 mEq/L 100-108 H CARBON DIOXIDE (test code = CO2) 16 mEq/L 21-33 L ANION GAP (test code = GAP) 14 0-20 N GLUCOSE (test code = GLU) 121 mg/dL 70-110 H BLOOD UREA NITROGEN (test code = BUN) 22 mg/dL 7-18 H GLOMERULAR FILTRATION RATE (test code = GFR) 26.8 80-90 L Units of measure = ml/min/1.73 m2 CREATININE (test code = CREAT) 1.9 mg/dL 0.6-1.3 H CALCIUM (test code = CA) 7.4 mg/dL 8.0-10.5 L [id number] 07:38:00* Test Item Value Reference Range Interpretation Comments MAGNESIUM (test code = MAG) 2.00 mg/dL 1.8-2.4 N [id number] 20:19:00* Test Item Value Reference Range Interpretation Comments GLUBED (test code = GLUBED) 134 MG/DL 70-110 H Performed by certified refinery operator helper at [facility] UA RFLX MICR CULT IF [id number] 09:56:00* Test Item Value Reference Range Interpretation Comments UA COLOR (test code = COLU) YELLOW YEL/STRAW UA APPEARANCE (test code = APPU) SL CLOUDY CLEAR UA GLUCOSE DIPSTICK (test code = DGLUU) 3+ NEGATIVE A UA BILIRUBIN DIPSTICK (test code = BILU) NEGATIVE NEGATIVE UA KETONE DIPSTICK (test code = KETU) NEGATIVE NEGATIVE UA SPECIFIC GRAVITY (test code = SGU) 1.009 1.005-1.030 N UA BLOOD DIPSTICK (test code = JASMEET) 1+ NEGATIVE A UA PH DIPSTICK (test code = RAJAT) 6.0 5.0-7.0 N UA PROTEIN DIPSTICK (test code = PROU) 3+ NEGATIVE A UA UROBILINIOGEN DIPSTICK (test code = URO) 0.2 mg/dL 0.2-1.0 UA NITRITE DIPSTICK (test code = STACIA) NEGATIVE NEGATIVE UA LEUKOCYTE ESTERASE DIPSTICK (test code = LEUU) 2+ NEGA TIVE A UA WBC (test code = WBCU) 21-50 WBC/HPF 0-3 A UA RBC (test code = RBCU) 4-10 RBC/HPF 0-3 UA WBC NO REFLEX (test code = WBCUCL) 21-50 WBC/HPF 0-3 A UA BACTERIA (test code = BACU) TRACE /HPF NONE SEEN UA SQUAMOUS CELLS (test code = SQU) 0-5 /HPF NONE SEEN UA MUCUS (test code = MUCU) TRACE /LPF NONE SEEN Indication for culture: Suprapubic PainSpecimen Description: CLEAN CATCH BASIC METABOLIC [id number] 07:00:00* Test Item Value Reference Range Interpretation Comments SODIUM (test code = NA) 143 mEq/L 134-147 N POTASSIUM (test code = K) 3.2 mEq/L 3.4-5.0 L CHLORIDE (test code = CL) 115 mEq/L 100-108 H CARBON DIOXIDE (test code = CO2) 21 mEq/L 21-33 N ANION GAP (test code = GAP) 10 0-20 N GLUCOSE (test code = GLU) 122 mg/dL 70-110 H BLOOD UREA NITROGEN (test code = BUN) 21 mg/dL 7-18 H GLOMERULAR FILTRATION RATE (test code = GFR) 26.8 80-90 L Units of measure = ml/min/1.73 m2 CREATININE (test code = CREAT) 1.9 mg/dL 0.6-1.3 H CALCIUM (test code = CA) 7.5 mg/dL 8.0-10.5 L [id number] 07:00:00* Test Item Value Reference Range Interpretation Comments MAGNESIUM (test code = MAG) 1.90 mg/dL 1.8-2.4 N CBC W/AUTO [id number] 06:42:00* Test Item Value Reference Range Interpretation Comments WHITE BLOOD CELL (test code = WBC) 10.30 x10 3/uL 4.5-11.0 N RED BLOOD CELL (test code = RBC) 4.08 x10 6/uL 3.54-5.02 N HEMOGLOBIN (test code = HGB) 10.9 g/dL 11.0-15.0 L HEMATOCRIT (test code = HCT) 35.4 % 33.0-45.0 N MEAN CELL VOLUME (test code = MCV) 86.8 fL 81.0-99.0 N MEAN CELL HGB (test code = MCH) 26.7 pg 27.0-33.0 L MEAN CELL HGB CONCETRATION (test code = MCHC) 30.8 g/dL 33.0-37. 0 L RED CELL DISTRIBUTION WIDTH CV (test code = RDW) 15.8 % 11.5- 14.5 H RED CELL DISTRIBUTION WIDTH SD (test code = RDW-SD) 49.5 fL 37 .0-54.0 N PLATELET COUNT (test code = PLT) 355 x10 3/uL 150-400 N MEAN PLATELET VOLUME (test code = MPV) 10.5 fL 7.0-9.0 H NEUTROPHIL % (test code = NT%) 70.1 % 56.0-77.0 N IMMATURE GRANULOCYTE % (test code = IG%) 0.5 % 0.0-2.0 N LYMPHOCYTE % (test code = LY%) 19.2 % 14.0-32.0 N MONOCYTE % (test code = MO%) 7.6 % 4.8-9.0 N EOSINOPHIL % (test code = EO%) 2.1 % 0.3-3.7 N BASOPHIL % (test code = BA%) 0.5 % 0.0-2.0 N NUCLEATED RBC % (test code = NRBC%) 0.0 % 0-0 N NEUTROPHIL # (test code = NT#) 7.22 x10 3/uL 2.0-7.6 N IMMATURE GRANULOCYTE # (test code = IG#) 0.05 x10 3/uL 0.00-0.03 H LYMPHOCYTE # (test code = LY#) 1.98 x10 3/uL 1.0-3.8 N MONOCYTE # (test code = MO#) 0.78 x10 3/uL 0.1-0.8 N EOSINOPHIL # (test code = EO#) 0.22 x10 3/uL 0.0-0.2 H BASOPHIL # (test code = BA#) 0.05 x10 3/uL 0.0-0.2 N NUCLEATED RBC # (test code = NRBC#) 0.00 x10 3/uL 0.0-0.1 N MANUAL DIFF REQUIRED (test code = MDIFF) NO [id number] 20:22:00* Test Item Value Reference Range Interpretation Comments GLUBED (test code = GLUBED) 117 MG/DL 70-110 H Performed by certified refinery operator helper at [facility] [id number] 16:21:00* Test Item Value Reference Range Interpretation Comments GLUBED (test code = GLUBED) 109 MG/DL 70-110 N Performed by certified refinery operator helper at [facility] [id number] 13:08:00* Test Item Value Reference Range Interpretation Comments GLUBED (test code = GLUBED) 102 MG/DL 70-110 N Performed by certified refinery operator helper at [facility] [id number] 09:39:00* Test Item Value Reference Range Interpretation Comments GLUBED (test code = GLUBED) 96 MG/DL 70-110 N Performed by certified refinery operator helper at [facility] BASIC METABOLIC [id number] 06:23:00* Test Item Value Reference Range Interpretation Comments SODIUM (test code = NA) 146 mEq/L 134-147 N POTASSIUM (test code = K) 3.1 mEq/L 3.4-5.0 L CHLORIDE (test code = CL) 116 mEq/L 100-108 H CARBON DIOXIDE (test code = CO2) 24 mEq/L 21-33 N ANION GAP (test code = GAP) 9 0-20 N GLUCOSE (test code = GLU) 116 mg/dL 70-110 H BLOOD UREA NITROGEN (test code = BUN) 19 mg/dL 7-18 H GLOMERULAR FILTRATION RATE (test code = GFR) 35.2 80-90 L Units of measure = ml/min/1.73 m2 CREATININE (test code = CREAT) 1.5 mg/dL 0.6-1.3 H CALCIUM (test code = CA) 8.0 mg/dL 8.0-10.5 N [id number] 06:23:00* Test Item Value Reference Range Interpretation Comments MAGNESIUM (test code = MAG) 1.90 mg/dL 1.8-2.4 N CBC W/AUTO [id number] 06:03:00* Test Item Value Reference Range Interpretation Comments WHITE BLOOD CELL (test code = WBC) 10.91 x10 3/uL 4.5-11.0 N RED BLOOD CELL (test code = RBC) 4.57 x10 6/uL 3.54-5.02 N HEMOGLOBIN (test code = HGB) 12.0 g/dL 11.0-15.0 N HEMATOCRIT (test code = HCT) 39.1 % 33.0-45.0 N MEAN CELL VOLUME (test code = MCV) 85.6 fL 81.0-99.0 N MEAN CELL HGB (test code = MCH) 26.3 pg 27.0-33.0 L MEAN CELL HGB CONCETRATION (test code = MCHC) 30.7 g/dL 33.0-37. 0 L RED CELL DISTRIBUTION WIDTH CV (test code = RDW) 15.4 % 11.5- 14.5 H RED CELL DISTRIBUTION WIDTH SD (test code = RDW-SD) 47.8 fL 37 .0-54.0 N PLATELET COUNT (test code = PLT) 368 x10 3/uL 150-400 N MEAN PLATELET VOLUME (test code = MPV) 10.4 fL 7.0-9.0 H NEUTROPHIL % (test code = NT%) 78.3 % 56.0-77.0 H IMMATURE GRANULOCYTE % (test code = IG%) 0.5 % 0.0-2.0 N LYMPHOCYTE % (test code = LY%) 13.7 % 14.0-32.0 L MONOCYTE % (test code = MO%) 5.5 % 4.8-9.0 N EOSINOPHIL % (test code = EO%) 1.5 % 0.3-3.7 N BASOPHIL % (test code = BA%) 0.5 % 0.0-2.0 N NUCLEATED RBC % (test code = NRBC%) 0.0 % 0-0 N NEUTROPHIL # (test code = NT#) 8.55 x10 3/uL 2.0-7.6 H IMMATURE GRANULOCYTE # (test code = IG#) 0.06 x10 3/uL 0.00-0.03 H LYMPHOCYTE # (test code = LY#) 1.49 x10 3/uL 1.0-3.8 N MONOCYTE # (test code = MO#) 0.60 x10 3/uL 0.1-0.8 N EOSINOPHIL # (test code = EO#) 0.16 x10 3/uL 0.0-0.2 N BASOPHIL # (test code = BA#) 0.05 x10 3/uL 0.0-0.2 N NUCLEATED RBC # (test code = NRBC#) 0.00 x10 3/uL 0.0-0.1 N MANUAL DIFF REQUIRED (test code = MDIFF) NO - CT ABD PELVIS W/O [id number] 19:16:00 Name: GRACIELA MEDINA [facility] : 1955 Age/S: 64 / F [address] [place] [address] Blvd Unit #: [id number] Loc: [place] [address] Phys: Cameron Mcdermott Acct: [id number] Dis Date: Status: REG ER PHONE #: [phone] Exam Date: 08/02/2019 1858 FAX #: [phone] Reason: DIffuse lower abdominal tenderness, diarrhea fo EXAMS: CPT CODE: [id number] CT ABD PELVIS W/O CONT 41720 Clinical Indication: Diffuse lower abdominal tenderness, diarrhea for one week Comparison: CT abdomen pelvis 09/07/2013 TECHNIQUE: Helical imaging was performed without injection of IV contrast, from the lung base through the symphysis with multiplanar reformations obtained. IV CONTRAST: No IV contrast was administered. GI CONTRAST: No oral contrast was administered. DLP: 665 mGy-cm FINDINGS: Evaluations of the internal organs are limited due to the lack of IV contrast. ABDOMEN AND PELVIS WITHOUT CONTRAST: LUNG BASE: The lung bases are clear. The heart is enlarged. The small pericardial effusion is present. LIVER: The liver has normal contour and is unremarkable. GALLBLADDER: The gallbladder is nonvisualized. PANCREAS: The panc reas is unremarkable. SPLEEN: The spleen is unremarkable. ADRENALS: The right adrenal gland is unremarkable. A 2.9 cm left a drenal nodule with attenuation of 5HU is present, consistent with an adren al adenoma, unchanged.. KIDNEYS: There is no evidence of renal or ureteral calculi. There is no evidence of hydronephrosis. DERRICK WEL: The visualized portion of the esophagus is unremarkable. The stomach is unremarkable. The small bowel is normal in caliber and there is no ev idence of masses or obstruction. . The colon is normal in caliber without any masses. Colonic diverticulosis is present. APPENDIX: The appe ndix is unremarkable. PELVIS: There are no pelvic mass. The urinar y bladder is normal. The uterus and ovaries are unremarkable. PAGE 1 Signed Report (CONTINUED) Name: GRACIELA BEYER [facility] : 1955 Age/S: 64 / F [address] [place], [place] [address]vd Unit #: [id number] L oc: [place], [place] [address] Phys: Cameron Mcdermott Acct: [id number] Dis Date: Status: REG ER PHONE #: [phone] Exam Date: 08/02/20191857 FAX #: [phone] Bruning son: DIffuse lower abdominal tenderness, diarrhea fo EXAMS: CPT CODE: [id number] CT ABD PELVIS W/O CONT 98789 <Continued> PERITONEUM: There is no evidence for free intraperitoneal fluid or air. SOFT TISSUES: The soft tissues are unremarkable. There is no evidence of masses or hernias. LYMPH NODES: There is no evidence of mesenteric, retroperitoneal, or inguinal lymphadenopathy. VASCULATURE: The abdominal aorta is normal in caliber. MUSCULOSKELETAL: No aggressive bone lesions are seen. Mild retrolisthesis of L5 over S1 with moderate spondylosis is present. IMPRESSION: Limited exam due to body habitus. No acute findings in the abdomen and pelvis. A 2.9 cm left adrenal adenoma, unchanged. Colonic diverticulosis. SL: LANVU-H at 1916 Reported and signed by: Abdon Shi M.D. CC: Cameron VALADEZ Technologist:Mayda Gaitan, RT(R)(CT) CTDI: DLP: Trnscb Date/Time: 08/02/2019 (1915) IrisLNV Orig Print D/T: S: 08/02/2019 (1918) PAGE 2 Signed Report HEPATIC FUNCTION PANEL 2019-08-02 19:15:00* Test Item Value Reference Range Interpretation Comments TOTAL PROTEIN (test code = PROT) 6.0 g/dL 6.4-8.2 L ALBUMIN (test code = ALB) 1.90 g/dL 3.4-5.0 L BILIRUBIN TOTAL (test code = BILT) 0.4 MG/DL <1.5 N BILIRUBIN DIRECT (test code = BILD) < 0.10 MG/DL 0.0-0.30 N BILIRUBIN INDIRECT (test code = BILIND) 0.30 MG/DL SGOT/AST (test code = AST) 27 IUnit/L 15-37 N SGPT/ALT (test code = ALT) 25 IUnit/L 15-65 N ALKALINE PHOSPHATASE TOTAL (test code = ALKP) 156 IUnit/L 20-125 H [id number] 19:15:00* Test Item Value Reference Range Interpretation Comments LIPASE (test code = LIP) 53 IUnit/L 73-393 L [id number] 19:15:00* Test Item Value Reference Range Interpretation Comments MAGNESIUM (test code = MAG) 1.80 mg/dL 1.8-2.4 N HCG SERUM [id number] 19:15:00* Test Item Value Reference Range Interpretation Comments HCG SERUM QUAL (test code = HCGQL) SERUM NEGATIVE NEGATIVE [id number] 19:15:00* Test Item Value Reference Range Interpretation Comments TROPONIN-I (test code = TROPI) 0.028 ng/mL 0.000-0.045 N Negative: <= 0.045 Positive: >= 0.046 Correlation with serial results, other cardiac markers andclinical findings is necessary to determine the clinicalsignificance of this result. Results using different methodologies should not be comparedto one another as quantitative results may vary by method. CBC W/AUTO [id number] 19:05:00* Test Item Value Reference Range Interpretation Comments WHITE BLOOD CELL (test code = WBC) 10.71 x10 3/uL 4.5-11.0 N RED BLOOD CELL (test code = RBC) 4.49 x10 6/uL 3.54-5.02 N HEMOGLOBIN (test code = HGB) 11.9 g/dL 11.0-15.0 N HEMATOCRIT (test code = HCT) 38.3 % 33.0-45.0 N MEAN CELL VOLUME (test code = MCV) 85.3 fL 81.0-99.0 N MEAN CELL HGB (test code = MCH) 26.5 pg 27.0-33.0 L MEAN CELL HGB CONCETRATION (test code = MCHC) 31.1 g/dL 33.0-37. 0 L RED CELL DISTRIBUTION WIDTH CV (test code = RDW) 15.4 % 11.5- 14.5 H RED CELL DISTRIBUTION WIDTH SD (test code = RDW-SD) 48.3 fL 37 .0-54.0 N PLATELET COUNT (test code = PLT) 372 x10 3/uL 150-400 N MEAN PLATELET VOLUME (test code = MPV) 10.5 fL 7.0-9.0 H NEUTROPHIL % (test code = NT%) 74.8 % 56.0-77.0 N IMMATURE GRANULOCYTE % (test code = IG%) 0.3 % 0.0-2.0 N LYMPHOCYTE % (test code = LY%) 14.9 % 14.0-32.0 N MONOCYTE % (test code = MO%) 8.1 % 4.8-9.0 N EOSINOPHIL % (test code = EO%) 1.4 % 0.3-3.7 N BASOPHIL % (test code = BA%) 0.5 % 0.0-2.0 N NUCLEATED RBC % (test code = NRBC%) 0.0 % 0-0 N NEUTROPHIL # (test code = NT#) 8.01 x10 3/uL 2.0-7.6 H IMMATURE GRANULOCYTE # (test code = IG#) 0.03 x10 3/uL 0.00-0.03 N LYMPHOCYTE # (test code = LY#) 1.60 x10 3/uL 1.0-3.8 N MONOCYTE # (test code = MO#) 0.87 x10 3/uL 0.1-0.8 H EOSINOPHIL # (test code = EO#) 0.15 x10 3/uL 0.0-0.2 N BASOPHIL # (test code = BA#) 0.05 x10 3/uL 0.0-0.2 N NUCLEATED RBC # (test code = NRBC#) 0.00 x10 3/uL 0.0-0.1 N MANUAL DIFF REQUIRED (test code = MDIFF) NO HEPATIC FUNCTION [id number] 19:03:00* Test Item Value Reference Range Interpretation Comments TOTAL PROTEIN (test code = PROT) g/dL 6.4-8.2 ALBUMIN (test code = ALB) g/dL 3.4-5.0 BILIRUBIN TOTAL (test code = BILT) MG/DL <1.5 BILIRUBIN DIRECT (test code = BILD) MG/DL 0.0-0.30 SGOT/AST (test code = AST) IUnit/L 15-37 SGPT/ALT (test code = ALT) IUnit/L 15-65 ALKALINE PHOSPHATASE TOTAL (test code = ALKP) IUnit/L 20-125 [id number] 19:03:00* Test Item Value Reference Range Interpretation Comments LIPASE (test code = LIP) IUnit/L 73-393 [id number] 19:03:00* Test Item Value Reference Range Interpretation Comments MAGNESIUM (test code = MAG) mg/dL 1.8-2.4 HCG SERUM [id number] 19:03:00* Test Item Value Reference Range Interpretation Comments HCG SERUM QUAL (test code = HCGQL) SERUM NEGATIVE NEGATIVE [id number] 19:03:00* Test Item Value Reference Range Interpretation Comments TROPONIN-I (test code = TROPI) ng/mL 0.000-0.045 CHEMISTRY 8 [id number] 18:39:00* Test Item Value Reference Range Interpretation Comments ISTAT-SODIUM (test code = NAP) MMOL/L 134-147 ISTAT-POTASSIUM (test code = KP) MMOL/L 3.4-5.0 ISTAT-CHLORIDE (test code = CLP) MMOL/L 100-108 ISTAT CARBON DIOXIDE (test code = ISTAT-CO2) mmol/L 21-33 N ISTAT CALCIUM IONIZED (test code = ISTAT-YESENIA) MG/DL 1.12-1.3 2 ISTAT-GLUCOSE (test code = GLUP) MG/DL 70-110 N ISTAT-BUN (test code = BUNP) MG/DL 7-18 N BEDSIDE CREATININE (test code = CREATBED) MG/DL 0.6-1.3 H GLOMERULAR FILTRATION RATE POC (test code = GFRBED) 35 ML/MIN CHEMISTRY 8 [id number] 18:39:00* Test Item Value Reference Range Interpretation Comments ISTAT-SODIUM (test code = NAP) 144 MMOL/L 134-147 N ISTAT-POTASSIUM (test code = KP) 2.7 MMOL/L 3.4-5.0 LL ISTAT-CHLORIDE (test code = CLP) 111 MMOL/L 100-108 H Performed by certified refinery operator helper at [facility] ISTAT CARBON DIOXIDE (test code = ISTAT-CO2) 22.0 mmol/L 21-33 N ISTAT CALCIUM IONIZED (test code = ISTAT-YESENIA) 1.14 MG/DL 1.12-1.3 2 N ISTAT-GLUCOSE (test code = GLUP) 106 MG/DL 70-110 N ISTAT-BUN (test code = BUNP) 18 MG/DL 7-18 N BEDSIDE CREATININE (test code = CREATBED) 1.6 MG/DL 0.6-1.3 H GLOMERULAR FILTRATION RATE POC (test code = GFRBED) 35 ML/MIN LACTIC ACID [id number] 18:39:00* Test Item Value Reference Range Interpretation Comments LACTIC ACID POC (test code = LACTP) 0.6 MMOL/L 0.90-1.70 L Performed by certified refinery operator helper at [facility]
[2020-04-06 00:35] LABS: ALBUMIN 3.2 g/dL (3.5-5.0); ALBUMIN/GLOBULIN RATIO 1.2 (0.8-2.0); ANION GAP 13.6 mmol/L (8-16); CREATININE, SERUM 3.44 mg/dL (0.57-1.11); POTASSIUM 3.6 mmol/L (3.5-5.1)
[2020-04-06 00:41] LABS: CREATINE KINASE MB 1.6 ng/mL (0-5.0)
--- NOTE | 2020-04-06 00:42 | Emergency Department Note ---
History of Present Illnes History of Present Illness Chief Complaint: COVID PUI History of Present Illness This is a 64 year old female REPORTS SOB X2 WEEKS; NO SOB NOTED, RESP ARE EVEN AND UNLABORED, O2 SAT RA 96%; PT DC'D FROM [facility] ON SATURDAY (04/02/2020) AFTER 9 DAY ADMISSION FOR DX OF HYPOGLYCEMIA, ALSO STATES RECENTLY STARTED ON HYDRALAZINE AND SHE FEELS BAD EVERY TIME SHE TAKES IT . Historian: Patient, Psychologist Developmental/EMS Arrival Mode: JEWETT Onset (how long ago): week(s) (2) Location: CHEST Quality: SOB Radiation: Reports non-radiation Severity: mild Onset quality: gradual Duration (how long): week(s) (2) Timing of current episode: constant Progression: unchanged Chronicity: chronic Context: Reports recent illness ( ABOVE); Denies recent surgery, Denies recent immobilization, Denies recent travel, Denies trauma/injury Relieving factors: none Exacerbating factors: none Associated symptoms: Reports shortness of breath, Reports weakness; Denies chest pain, Denies cough, Denies diaphoresis, Denies fever/chills, Denies headaches, Denies loss of appetite Past Medical/Family History Physician Review I have reviewed the patient's past medical and family history. Any updates have been documented here. Past Medical History Recent Fever: No Clinical Suspicion of Infectio: No New/Unexplained Change in Ment: No Social History Smoking Cessation: Never Smoker Alcohol Use: None Any Illegal Drug Use: No Family History Family history of heart diseas: No Review of Systems Review of Systems Constitutional: Reports no symptoms EENTM: Reports no symptoms Cardiovascular: Reports no symptoms Respiratory: Reports as per HPI Gastrointestinal: Reports no symptoms Genitourinary: Reports no symptoms Musculoskeletal: Reports no symptoms Integumentary: Reports no symptoms Neurological: Reports no symptoms Psychological: Reports no symptoms Endocrine: Reports no symptoms Hematological/Lymphatic: Reports no symptoms Physical Exam Related Data Allergies: Uncoded Allergies: PER PT "A BLOOD PRESSURE MEDICINE" (Allergy, Severe, 04/06/20) Triage Vital Signs Vital Signs Date Time Temp Pulse Resp B/P (MAP) Pulse Ox O2 Delivery O2 Flow Rate FiO2 04/06/20 00:14 98.9 75 21 148/59 100 Room Air Vital signs reviewed: Yes Physical Exam CONSTITUTIONAL Constitutional: Present well-developed, Present well-nourished; Absent distressed HENT HENT: Present normocephalic, Present atraumatic, Present oropharynx clear/moist, Present nose normal HENT L/R: Present left ext ear normal, Present right ext ear normal EYES Eyes: Reports PERRL, Reports conjunctivae normal NECK Neck: Present ROM normal PULMONARY Pulmonary: Present effort normal, Present breath sounds normal CARDIOVASCULAR Cardiovascular: Present regular rhythm, Present heart sounds normal, Present capillary refill normal, Present normal rate GASTROINTESTINAL Abdominal: Present soft, Present nontender, Present bowel sounds normal GENITOURINARY Genitourinary: Present exam deferred SKIN Skin: Present warm, Present dry MUSCULOSKELETAL Musculoskeletal: Present ROM normal, Present other (LEFT AKA, RIGHT MID FOOT PARTIAL AMPUTATION) NEUROLOGICAL Neurological: Present alert, Present oriented x 3, Present no gross motor or sensory deficits PSYCHOLOGICAL Psychological: Present mood/affect normal, Present judgement normal Results Laboratory Result Diagram: 04/06/20 0010 04/06/20 0010 Laboratory Laboratory Tests Test 04/06/20 00:10 White Blood Count 6.19 x10e3/uL (4.8-10.8) Red Blood Count 3.91 x10e6/uL (3.6-5.1) Hemoglobin 10.3 g/dL (12.0-16.0) Hematocrit 33.2 % (34.2-44.1) Mean Corpuscular Volume 84.9 fL (81-99) Mean Corpuscular Hemoglobin 26.3 pg (28-32) Mean Corpuscular Hemoglobin Concent 31.0 g/dL (31-35) Red Cell Distribution Width 15.9 % (11.7-14.4) Platelet Count 261 x10e3/uL (140-360) Neutrophils (%) (Auto) 70.9 % (38.7-80.0) Lymphocytes (%) (Auto) 17.8 % (18.0-39.1) Monocytes (%) (Auto) 7.6 % (4.4-11.3) Eosinophils (%) (Auto) 2.9 % (0.0-6.0) Basophils (%) (Auto) 0.5 % (0.0-1.0) Neutrophils # (Auto) 4.4 (2.1-6.9) Lymphocytes # (Auto) 1.1 (1.0-3.2) Monocytes # (Auto) 0.5 (0.2-0.8) Eosinophils # (Auto) 0.2 (0.0-0.4) Basophils # (Auto) 0.0 (0.0-0.1) Absolute Immature Granulocyte (auto 0.02 x10e3/uL (0-0.1) Sodium Level 141 mmol/L (136-145) Potassium Level 3.6 mmol/L (3.5-5.1) Chloride Level 112 mmol/L (98-107) Carbon Dioxide Level 19 mmol/L (22-29) Anion Gap 13.6 mmol/L (8-16) Blood Urea Nitrogen 38 mg/dL (7-26) Creatinine 3.44 mg/dL (0.57-1.11) Estimat Glomerular Filtration Rate 14 ML/MIN (60-) BUN/Creatinine Ratio 11 (6-25) Glucose Level 147 mg/dL (74-118) Calcium Level 8.0 mg/dL (8.4-10.2) Total Bilirubin 0.3 mg/dL (0.2-1.2) Aspartate Amino Transf (AST/SGOT) 16 IU/L (5-34) Alanine Aminotransferase (ALT/SGPT) 13 IU/L (0-55) Alkaline Phosphatase 81 IU/L (40-150) Creatine Kinase 188 IU/L (29-168) Total Protein 5.8 g/dL (6.5-8.1) Albumin 3.2 g/dL (3.5-5.0) Globulin 2.6 g/dL (2.3-3.5) Albumin/Globulin Ratio 1.2 (0.8-2.0) Lab results reviewed: Yes Imaging Imaging results reviewed: Yes Procedures 12 Lead ECG Interpretation ECG Interpretation : ECG: ECG 1 General Administrator: Interpreted by ED physician Date: Apr 05, 2020 Time: 23:48 Rhythm: sinus rhythm Rate: normal BPM: 75 ST segments normal: Yes T waves normal: Yes Other findings: no other findings Clinical Impression: normal ECG Assessment & Plan Medical Decision Making [facility] PT WITH SOB FOR 2 WEEKS CBC, CMP, BNP, CARDIAC ENZYMES, EKG, CXR ORDERED TO EVAL FOR MYOCARDIAL INFARCTION, ELECTROLYTE ABNORMALITY, PULMONARY EDEMA. Assessment & Plan Final Impression: (1) Dyspnea (2) CKD (chronic kidney disease) stage 4, GFR 15-29 ml/min Last Vital Signs Date Time Temp Pulse Resp B/P (MAP) Pulse Ox O2 Delivery O2 Flow Rate FiO2 04/06/20 00:14 98.9 75 21 148/59 100 Room Air RENEE KNAPP MD Apr 06, 2020 00:42
--- NOTE | 2020-04-06 01:37 | Diagnostic Imaging Report ---
ADDENDUM #1 BEGIN ADDENDUM: Given lack of effusions, prominent interstitial markings likely represent mild pulmonary vascular congestion. No overt edema. Signed by: Christopher Atkinson MD on 04/06/2020 1:45 AM ORIGINAL REPORT EXAMINATION: CHEST SINGLE (PORTABLE) INDICATION: ^SOB ^Y COMPARISON: None FINDINGS: The heart is enlarged. Pulmonary vasculature is distended and indistinct. No sizable pleural effusion. Patchy and hazy perihilar opacities. No pneumothorax. IMPRESSION: Cardiomegaly with interstitial pulmonary edema favored. Pneumonia less favored, but could be considered in the appropriate clinical setting. Signed by: Christopher Atkinson MD on 04/06/2020 1:34 AM
[2020-04-06 02:02] VITALS: BP 153/62
== END 2020-04-06 03:03 | disposition home or self-care (01) ==
LOC: ER 23:58
DX: R06.00 Dyspnea, unspecified (principal); I12.9 Hypertensive chronic kidney disease with stage 1 through stage 4 chronic kidney disease, or unspecified chronic kidney disease; E11.22 Type 2 diabetes mellitus with diabetic chronic kidney disease; N18.9 Chronic kidney disease, unspecified; Z89.512 Acquired absence of left leg below knee
CPT/HCPCS: 36415; 71045; 80053; 82550; 82553; 83880; 84484; 85025; 93005; 99284